=== PATIENT | male | born 1980 | race African-American/Black ===

== ENCOUNTER → 2016-11-28 | Outpatient (CLI) | payer OTHER ==
--- NOTE | 2016-11-28 10:21 | CT ---
EXAMINATION TYPE: CT abdomen pelvis w con DATE OF EXAM: 11/28/2016 COMPARISON: NONE HISTORY: 36-year-old male with abdominal and pelvic pain. TECHNIQUE: Contiguous axial scanning of the abdomen and pelvis following administration of 100 ml Omn ipaque 300 IV contrast. Delayed images through the kidneys and coronal/sagittal reconstructions perf ormed. CT DLP: 817 mGycm Automated exposure control for dose reduction was used. FINDINGS: Heart is normal size without pericardial effusion. Lung bases are clear without pleural effusion. Liver measures at the upper limits of normal at 17.5 cm craniocaudal. However, there is diffuse low a ttenuation with some fatty sparing along the gallbladder fossa and more pronounced focal fat along th e falciform ligament. Portal venous system is patent. No biliary ductal dilatation. The gallbladder, adrenal glands, left kidney, spleen, and pancreas show no gross abnormality. Couple tiny subcentimeter hypodensities lower pole right kidney too small fractured CT characterization, lik charleen tiny cysts. No dilated small bowel, free fluid, or free air. Oral contrast has progressed to the hepatic flexure. There is moderate stool burden without pericolonic inflammatory change. No mesenteric or retroperitoneal lymphadenopathy seen. There is a small fatty umbilical hernia. The left testicle appears high riding in the scrotal sac but remains outside of the inguinal canal. Bladder only partially urine distended. No abnormal fluid collection in the pelvis or pelvic lymphade nopathy seen. Bones: There are osseous excrescences at the femoral head neck junctions which can be seen in the set ting of femoral acetabular impingement syndrome. Additional anterior lumbar interbody fusion changes with satisfactory interbody ankylosis. L5 pars de fects are present with prominent grade 1 anterolisthesis. IMPRESSION: 1. NO ACUTE INFLAMMATORY PROCESS IDENTIFIED IN THE ABDOMEN OR PELVIS TO EXPLAIN THE PATIENT'S SYMPTOM S. 2. HEPATIC STEATOSIS. CORRELATE WITH LFT's, LIPID PROFILE, AND PATIENT RISK FACTORS. 3. THE LEFT TESTICLE APPEARS HIGH RIDING IN THE SCROTAL SAC BUT REMAINS OUTSIDE OF THE INGUINAL CANAL . 4. SMALL FATTY UMBILICAL HERNIA. 5. STATUS POST L5-S1 ALIF FOR L5 PARS DEFECTS. THERE IS SATISFACTORY INTERBODY BONY FUSION AND A FIX ED PROMINENT GRADE 1 ANTEROLISTHESIS. 6. SOME BONY CHANGES AT THE HIPS CAN BE SEEN IN THE SETTING OF FEMORAL ACETABULAR IMPINGEMENT SYNDROM E. IF ANY CHRONIC HIP PAIN, CONSIDER ORTHOPEDIC REFERRAL.
--- NOTE | 2016-11-28 13:23 | US ---
EXAMINATION TYPE: US scrotum with doppler. Grayscale and color Doppler Duplex imaging performed of t edna scrotum. DATE OF EXAM: 11/28/2016 COMPARISON: NONE CLINICAL HISTORY: n50.8 pain, discomfort right, plus intermittent testicular retraction since back pretty rgery several years back. EXAM MEASUREMENTS: TESTICLES: Right Testicle: 3.6 x 1.8 x 2.6 cm Left Testicle: 3.5 x 1.8 x 2.5 cm EPIDIDYMIS HEAD: Right Epididymis: 0.8 cm Left Epididymis: 0.8 cm Doppler performed to assess for testicular vascularity; good bilateral color flow and waveforms are s een. There is no evidence of testicular torsion. Presence of hydroceles: no Presence of varicoceles: no Small right epididymal cyst 0.2cm. Testicular echotexture is homogenous and symmetric. IMPRESSION: Small right epididymal cyst. Testicular torsion is not evident.
== END | disposition home or self-care (01) ==
LOC: RADUSMAIN 08:37
PROVIDERS: ATTEND Surgery
DX: K76.0 Fatty (change of) liver, not elsewhere classified (principal); K42.9 Umbilical hernia without obstruction or gangrene; M89.8X8 Other specified disorders of bone, other site; N50.3 Cyst of epididymis; Z98.1 Arthrodesis status
CPT/HCPCS: 93975; 76870; 74177; Q9967

== ENCOUNTER → 2017-07-28 | Outpatient (CLI) | payer OTHER ==
--- NOTE | 2017-07-28 09:38 | MR ---
MRI CERVICAL SPINE: CLINICAL HISTORY: Cervical disc degeneration per order. Occasional headaches with neck pain causing p ain or weakness into left arm since March 20, 2016 per patient. History of ankylosing spondylosis. TECHNIQUE: Multiplanar, multisequence imaging of the cervical spine is performed without IV contrast. COMPARISON: MRI cervical spine November 23, 2015. FINDINGS: Sagittal images of the cervical spine show the craniocervical junction to remain within nor mal limits. The cervical and upper thoracic spinal cord remains normal in course, caliber, and signa l. Vertebral alignment is stable and straightened. The vertebral body and intravertebral disk heigh ts are normal. There is persistent decreased T1 signal and increased T2 signal involving the C4-C7 ve rtebra, diminished T1 signal is now more prominent and greater than adjacent skeletal muscle. Some di ffuse heterogeneous enhancement was seen on prior study at these levels. There is moderate to severe multilevel anterior spurring redemonstrated at these levels. Axial images redemonstrates focal left paracentral disc protrusion mildly effacing anterolateral thec al sac C5-C6 level on axial image 22, bilateral neural foramina are patent. Remainder axial level willis w no significant spinal canal stenosis or neural foraminal narrowing at any cervical level. IMPRESSION: Straightening of spine with prominent spurring and abnormal diffuse bone marrow signal mi d to lower cervical levels redemonstrated. Consider persistent active inflammation given history of a nkylosing spondylitis. No significant change from prior MRI.
== END | disposition home or self-care (01) ==
LOC: RADMRIMAIN 07:48
PROVIDERS: ATTEND Nurse Practitioner Family
DX: M46.02 Spinal enthesopathy, cervical region (principal)
CPT/HCPCS: 72141

== ENCOUNTER 2017-10-10 17:52 | Emergency (ER) | payer OTHER ==
[2017-10-10 18:18] VITALS: BP 133/89; PULSE 114; RESP 18; TEMP 99.4
--- NOTE | 2017-10-10 18:34 | ED ---
Upper Extremity HPI - General Chief Complaint: Extremity Injury, Upper Stated Complaint: Shoulder Dislocation Time Seen by Provider: 10/10/17 18:18 Source: patient, RN notes reviewed Mode of arrival: ambulatory Limitations: no limitations - History of Present Illness Initial Comments: This is a 37-year-old male presents emergency from chief complaint of left shoulder pain. Patient states that he was doing yard work all day states he went to relax states he had his arm above his head states he went to move down he states had severe pain ever since. He states he feels they cannot really move his left arm secondary to pain. Denies any paresthesias. Denies chest pain, shortness breath, headache or dizziness. Denies any neck pain at this time. - Related Data Previous Rx's Medication Instructions Recorded Ibuprofen [Motrin] 600 mg PO Q8HR PRN #30 tab 10/10/17 Allergies Allergy/AdvReac Type Severity Reaction Status Date / Time Penicillins Allergy Unknown Verified 10/10/17 18:18 Review of Systems ROS Statement: Those systems with pertinent positive or pertinent negative responses have been documented in the HPI. ROS Other: All systems not noted in ROS Statement are negative. Past Medical History Past Medical History: No Reported History History of Any Multi-Drug Resistant Organisms: None Reported Additional Past Surgical History / Comment(s): back Past Psychological History: No Psychological Hx Reported Smoking Status: Current every day smoker Past Alcohol Use History: Daily Past Drug Use History: Marijuana General Exam Limitations: no limitations General appearance: alert, in no apparent distress Head exam: Present: atraumatic, normocephalic, normal inspection Neck exam: Present: normal inspection, full ROM. Absent: tenderness, meningismus, lymphadenopathy Respiratory exam: Present: normal lung sounds bilaterally. Absent: respiratory distress, wheezes, rales, rhonchi, stridor Cardiovascular Exam: Present: regular rate, normal rhythm, normal heart sounds. Absent: systolic murmur, diastolic murmur, rubs, gallop, clicks Extremities exam: Present: other (Left shoulder limited range of motion secondary pain there is mild tenderness over the posterior aspect, there is no obvious deformity patient is neurovascularly intact.) Course Vital Signs 10/10/17 18:16 Temperature 99.4 F Pulse Rate 114 H Respiratory 18 Rate Blood Pressure 133/89 O2 Sat by Pulse 97 Oximetry Medical Decision Making - Medical Decision Making 37-year-old male presents for left shoulder pain. There is no evidence of dislocation on x-ray. Patient most likely has a left shoulder strain. Patient is a shot of Toradol emergency department. Patient discharged on anti- inflammatories advised to rest, ice and follow-up with orthopedics. Return parameters were discussed. Disposition Clinical Impression: Strain of shoulder Disposition: HOME SELF-CARE Condition: Stable Instructions: Shoulder Sprain (ED) Additional Instructions: Please return to the Emergency Department if symptoms worsen or any other concerns. Prescriptions: Ibuprofen [Motrin] 600 mg PO Q8HR PRN #30 tab PRN Reason: Pain Is patient prescribed a controlled substance at d/c from ED?: No Referrals: John Puente MD [Primary Care Provider] - 1-2 days Antoni Vargas DO [Doctor of Osteopathic Medicine] - 1-2 days Time of Disposition: 18:37
[2017-10-10] MEDS ORDERED: KETOROLAC 60 MG/2 ML VIAL IM STA (18:35)
[2017-10-10] MEDS ORDERED: ORPHENADRINE 30 MG/ML 2 ML VIAL IM STA (18:35)
--- NOTE | 2017-10-10 18:37 | XR ---
EXAMINATION TYPE: XR shoulder complete LT DATE OF EXAM: 10/10/2017 COMPARISON: NONE HISTORY: Shoulder pain TECHNIQUE: 3 views FINDINGS: I see no fracture nor dislocation. Joint spaces are normal. Soft tissues appear normal. IMPRESSION: Negative left shoulder exam.
== END 2017-10-10 18:56 | disposition home or self-care (01) ==
LOC: EC 17:52
DX: S46.912A Strain of unspecified muscle, fascia and tendon at shoulder and upper arm level, left arm, initial encounter (principal); F17.200 Nicotine dependence, unspecified, uncomplicated; Z88.0 Allergy status to penicillin
CPT/HCPCS: 73030; 99283; 96372 ×2; J2360; J1885

== ENCOUNTER → 2018-10-19 | Outpatient (CLI) | payer OTHER ==
--- NOTE | 2018-10-19 12:53 | CT ---
EXAMINATION TYPE: CT lumbar spine wo con DATE OF EXAM: 10/19/2018 12:17 PM COMPARISON: HISTORY: Low back pain. CT DLP: 407.8 mGycm Automated exposure control for dose reduction was used. TECHNIQUE: Unenhanced CT of the lumbar spine was performed. Bone and soft tissue window settings are submitted as well as coronal and sagittal reconstructions. FINDINGS: There is osseous bridging and fusion status post insertion of intervertebral disc age of th e L5-S1 vertebral levels. Anterior osteophyte at L4-L5 nearly bridges the vertebral bodies as do lowe r thoracic spine osteophytes. Sclerosis originating from the endplates is seen of the lower thoracic spine and at L1, likely discogenic endplate change. No evidence of vertebral body height loss or markus lignment. L1-L2: Very mild broad-based disc bulge is seen without neural foraminal narrowing or spinal canal st enosis. L2-L3: There is a very mild broad-based disc bulge creating very minimal bilateral neural foraminal n arrowing without spinal canal stenosis. L3-L4: There is a broad-based disc bulge creating mild bilateral neural foraminal narrowing without s remington canal stenosis. L4-L5: There is a broad-based disc bulge creating mild to moderate bilateral neural foraminal narrowi ng without spinal canal stenosis. L5-S1: Osseous fusion at this level is seen. Posterior projecting bony productive change creates mild spinal canal stenosis at this level. Neural foramen are also mildly narrowed. IMPRESSION: 1. No vertebral body height loss or malalignment of the lumbar spine. 2. Surgical fusion of the L5-S1 levels are seen with bony productive change at the posterior margin c reating mild spinal canal stenosis and mild bilateral neural foraminal narrowing. 3. Degenerative disc disease of the remaining visualized lumbar spine wo high-grade spinal canal sten osis. Degree of spinal canal stenosis or neural foraminal narrowing would be more accurately assessed with MRI however multilevel mild and mild to moderate neural foraminal narrowing are seen as describ ed above.
== END | disposition home or self-care (01) ==
LOC: RADCTMAIN 11:57
PROVIDERS: ATTEND Neurological Surgery
DX: M48.061 Spinal stenosis, lumbar region without neurogenic claudication (principal); M48.07 Spinal stenosis, lumbosacral region; M51.36 Other intervertebral disc degeneration, lumbar region; Z98.1 Arthrodesis status
CPT/HCPCS: 72131

== ENCOUNTER 2020-11-23 20:38 | Inpatient (IN) | payer OTHER ==
[2020-11-23 21:28] LABS: Basophils # (A) 0.1 k/uL (0-0.2); Basophils % (A) 1 %; Eosinophils # (A) 0.2 k/uL (0-0.7); Eosinophils % (A) 2 %; HCT 40.9 % (39.0-53.0); HGB 13.8 gm/dL (13.0-17.5); Lymphocytes # (A) 3.3 k/uL (1.0-4.8); Lymphocytes % (A) 34 %; MCH 31.2 pg (25.0-35.0); MCHC 33.8 g/dL (31.0-37.0); MCV 92.2 fL (80.0-100.0); Mean Platelet Volume 6.8; Monocytes # (A) 0.6 k/uL (0-1.0); Monocytes % (A) 6 %; Neutrophils # (A) 5.5 k/uL (1.3-7.7); Neutrophils % (A) 56 %; Platelet Count 370 k/uL (150-450); RBC 4.44 m/uL (4.30-5.90); RDW 12.9 % (11.5-15.5); WBC 9.8 k/uL (3.8-10.6)
[2020-11-23] MEDS ORDERED: LORazepam 2 MG/ML INJ IV PRN (21:32)
[2020-11-23] MEDS ORDERED: THIAMINE 100 MG/ML 2 ML VIAL IM STA (21:32)
--- NOTE | 2020-11-23 21:32 | ED ---
Alcohol HPI - General Chief Complaint: Alcohol Stated Complaint: Alcohol Withdraw Time Seen by Provider: 11/23/20 21:14 Source: patient Mode of arrival: ambulatory Limitations: no limitations - History of Present Illness Initial Comments: 40-year-old male presents emergency Department with chief complaint of alcohol withdrawal. Patient has history of alcohol abuse and states that he typically drinks 1/5 of liquor daily. States she is attempting to quit but is unable due to withdrawal symptoms. States he has not drank anything since yesterday and he developed chills and bilateral tremors. States she also developed palpitations with increased anxiety some nausea or vomiting. Therefore, he decided to drink today again. States he is looking for some help. He is denying any homicidal, suicidal thoughts or ideations at this time. - Related Data Home Medications Medication Instructions Recorded Confirmed Cyclobenzaprine [Flexeril] 10 mg PO TID PRN 10/10/17 10/10/17 HYDROcodone/APAP 7.5-325MG [[place] 1 tab PO Q6HR PRN 10/10/17 10/10/17 7.5-325] Ibuprofen [Motrin] 800 mg PO TID PRN 10/10/17 10/10/17 predniSONE 10 mg PO DAILY 10/10/17 10/10/17 Previous Rx's Medication Instructions Recorded Ibuprofen [Motrin] 600 mg PO Q8HR PRN #30 tab 10/10/17 Allergies Allergy/AdvReac Type Severity Reaction Status Date / Time Penicillins Allergy Unknown Verified 10/10/17 18:42 Review of Systems ROS Statement: Those systems with pertinent positive or pertinent negative responses have been documented in the HPI. ROS Other: All systems not noted in ROS Statement are negative. Past Medical History Past Medical History: No Reported History History of Any Multi-Drug Resistant Organisms: None Reported Additional Past Surgical History / Comment(s): back Past Psychological History: No Psychological Hx Reported Smoking Status: Current every day smoker Past Alcohol Use History: Abuse, Daily Past Drug Use History: Marijuana General Exam Limitations: no limitations General appearance: alert, in no apparent distress, anxious Head exam: Present: atraumatic, normocephalic, normal inspection Eye exam: Present: normal appearance, PERRL, EOMI Pupils: Present: normal accommodation ENT exam: Present: normal exam, normal oropharynx, mucous membranes moist Neck exam: Present: normal inspection, full ROM. Absent: tenderness, lymphadenopathy Respiratory exam: Present: normal lung sounds bilaterally. Absent: respiratory distress, wheezes, rales, rhonchi, stridor Cardiovascular Exam: Present: regular rate, normal rhythm, normal heart sounds GI/Abdominal exam: Absent: soft, distended, tenderness, guarding, rebound Extremities exam: Present: normal inspection, full ROM, normal capillary refill. Absent: tenderness Back exam: Present: normal inspection, full ROM. Absent: tenderness Neurological exam: Present: alert, oriented X3 Psychiatric exam: Present: normal affect, normal mood Skin exam: Present: warm, dry, intact, normal color Course Vital Signs 11/23/20 20:45 Temperature 98.2 F Pulse Rate 105 H Respiratory 20 Rate Blood Pressure 143/101 O2 Sat by Pulse 100 Oximetry Medical Decision Making - Medical Decision Making 40-year-old male presents emergency Department with chief complaint of alcohol withdrawal. On physical examination, patient is tremulous in bilateral upper extremities. He is also very anxious when speaking. Patient was started on the Ativan protocol. CIWA assessed. Laboratory work is unremarkable. Blood alcohol 0.071. Patient will be admitted for further psychiatric management. Case discussed with ADmitting DR Connors Psych consult - Lab Data Result diagrams: 11/23/20 21:17 11/23/20 21:17 Lab Results 11/23/20 11/23/20 11/23/20 Range/Units 21:17 21:17 21:17 WBC 9.8 (3.8-10.6) k/uL RBC 4.44 (4.30-5.90) m/uL Hgb 13.8 (13.0-17.5) gm/dL Hct 40.9 (39.0-53.0) % MCV 92.2 (80.0-100.0) fL MCH 31.2 (25.0-35.0) pg MCHC 33.8 (31.0-37.0) g/dL RDW 12.9 (11.5-15.5) % Plt Count 370 (150-450) k/uL MPV 6.8 Neutrophils % 56 % Lymphocytes % 34 % Monocytes % 6 % Eosinophils % 2 % Basophils % 1 % Neutrophils # 5.5 (1.3-7.7) k/uL Lymphocytes # 3.3 (1.0-4.8) k/uL Monocytes # 0.6 (0-1.0) k/uL Eosinophils # 0.2 (0-0.7) k/uL Basophils # 0.1 (0-0.2) k/uL Sodium 139 (137-145) mmol/L Potassium 3.6 (3.5-5.1) mmol/L Chloride 102 (98-107) mmol/L Carbon Dioxide 30 (22-30) mmol/L Anion Gap 7 mmol/L BUN 16 (9-20) mg/dL Creatinine 0.82 (0.66-1.25) mg/dL Est GFR (CKD-EPI)AfAm >90 (>60 ml/min/1.73 sqM) Est GFR (CKD-EPI)NonAf >90 (>60 ml/min/1.73 sqM) Glucose 99 (74-99) mg/dL Calcium 9.4 (8.4-10.2) mg/dL Magnesium 2.0 (1.6-2.3) mg/dL Total Bilirubin 0.5 (0.2-1.3) mg/dL AST 38 (17-59) U/L ALT 19 (4-49) U/L Alkaline Phosphatase 115 (38-126) U/L Total Protein 7.8 (6.3-8.2) g/dL Albumin 4.7 (3.5-5.0) g/dL Lipase 74 (23-300) U/L Urine Color Light Yellow Urine Appearance Clear (Clear) Urine pH 6.0 (5.0-8.0) Ur Specific [place] 1.010 (1.001-1.035) Urine Protein Negative (Negative) Urine Glucose (UA) Negative (Negative) Urine Ketones Negative (Negative) Urine Blood Small H (Negative) Urine Nitrite Negative (Negative) Urine Bilirubin Negative (Negative) Urine Urobilinogen <2.0 (<2.0) mg/dL Ur Leukocyte Esterase Negative (Negative) Urine RBC 2 (0-5) /hpf Ur Squamous Epith Cells <1 (0-4) /hpf Urine Mucus Rare H (None) /hpf Serum Alcohol 71 mg/dL Disposition Clinical Impression: Alcoholic intoxication, Alcohol withdrawal Disposition: ADMITTED IP TO THIS [facility] Condition: Fair Instructions (If sedation given, give patient instructions): Alcohol Withdrawal (ED) Is patient prescribed a controlled substance at d/c from ED?: No Referrals: John Puente MD [Primary Care Provider] - 1-2 days Time of Disposition: 23:27
[2020-11-23] MEDS: LORazepam 2 MG/ML INJ IV PRN (21:36)
[2020-11-23 21:39] LABS: Appearance,Urine Clear (Clear); Bilirubin,Urine Negative (Negative); Blood,Urine Small (Negative); Color,Urine Light Yellow; Glucose,Urine (UA) Negative (Negative); Ketones,Urine Negative (Negative); Leukocyte Esterase,Urine Negative (Negative); Mucus,Urine Rare /hpf; Nitrite,Urine Negative (Negative); Protein,Urine Negative (Negative); RBC,Urine 2 /hpf (0-5); Squamous Epithelial Cell,Urine <1 /hpf (0-4); Urobilinogen,Urine <2.0 mg/dL (<2.0)
[2020-11-23 21:45] LABS: ALT 19 U/L (4-49); AST 38 U/L (17-59); African American GFR (CKD) >90 (>60 ml/min/1.73 sqM); Albumin 4.7 g/dL (3.5-5.0); Alcohol 71 mg/dL; Alkaline Phosphatase 115 U/L (38-126); Anion Gap 7 mmol/L; Blood Urea Nitrogen 16 mg/dL (9-20); Calcium 9.4 mg/dL (8.4-10.2); Carbon Dioxide 30 mmol/L (22-30); Chloride 102 mmol/L (98-107); Glucose 99 mg/dL (74-99); Lipase 74 U/L (23-300); Non-African American GFR(CKD) >90 (>60 ml/min/1.73 sqM); Potassium 3.6 mmol/L (3.5-5.1); Sodium 139 mmol/L (137-145); Total Bilirubin 0.5 mg/dL (0.2-1.3); Total Protein 7.8 g/dL (6.3-8.2)
[2020-11-23] MEDS ORDERED: NALOXONE 0.4 MG/ML 1 ML VIAL IV PRN (23:27)
[2020-11-24] MEDS: LORazepam 2 MG/ML INJ IV PRN ×4 (01:08→22:20)
[2020-11-24] MEDS: CLINDAMYCIN TOPICAL SCH (10:13)
[2020-11-24] MEDS: BENZOYL PEROXIDE TOPICAL SCH (10:13)
[2020-11-24] MEDS: PATIENT'S OWN (Dextroamphetamine/Amphetamine [Adderall] 10 MG Tablet) PO SCH ×2 (10:13→13:43)
[2020-11-24] MEDS: predniSONE 10 MG TAB PO SCH (10:18)
[2020-11-24] MEDS: THIAMINE 100 MG TAB PO SCH ×2 (10:18→18:57)
[2020-11-24] MEDS: METOPROLOL TARTRATE 12.5 MG TAB PO SCH ×3 (12:38→20:07)
[2020-11-24] MEDS: FAMOTIDINE 20 MG TAB PO SCH ×2 (12:38→20:07)
--- NOTE | 2020-11-24 13:51 | P.CN ---
Psychiatric Consult - . Consult date: 11/24/20 Consult:: IDENTIFYING DATA: This patient is a 40-year-old -[place] male who currently lives with his in a house has 4 girls and 8 grand kids REASON FOR REFERRAL: Psychiatry was consulted for alcohol withdrawal HISTORY OF PRESENT ILLNESS: The patient presented to the hospital with complaints of alcohol abuse and alcohol withdrawal. The patient had been drinking a fifth of liquor a day and attempting to quit on his own however began developing early signs of withdrawal including palpitations and anxiety nausea and vomiting and then started drinking again. His blood alcohol level was 71 on admission. Patient was seen by psychiatry today and claims that he is wanting to stop alcohol however claims "it's not working out". He states that is his first time trying to quit on his own and claims that he has not done any other treatment. He denies ever going to rehab in the past or being on medications. He states he has been drinking alcohol since the age of 23. He claims that he drinks approximately a fifth of liquor a day. He claims that he has never had a DUI in the past. He denies a history of DTs. He currently claims that he does not have any active alcohol withdrawal symptoms at this time and denies any tremors. He is denying any depression or anxiety at this time. He claims his sleep has been fair. At this time patient denies any suicidal or homical ideations, intent or plan. Patient denies any auditory, visual hallucinations and denies any paranoia or delusions. Patients admits to using alcohol as described above. He also claims that he smokes marijuana daily. He claims that he PAST PSYCHIATRIC HISTORY: Patient has a a history of alcohol abuse. Patient denies being on any psychiatric medications. He claims that he was previously admitted psychiatrically to [facility] approximately 15 years ago. Patient denies any psychiatric outpatient follow-up. Patient denies any history of suicide attempts in the past. PAST MEDICAL HISTORY: He states that he is has had back surgeries in the past and rheumatoid arthritis. ALLERGIES: as per EMR. CHEMICAL DEPENDENCY HISTORY: as per HPI. FAMILY PSYCHIATRIC/SUBSTANCE USE HISTORY: He states that his brother has some form of mental illness. SOCIAL HISTORY: Patient was born and raised in [place]. 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 He states that he has been to nursing home in the past and he was charged with domestic violence. MENTAL STATUS EXAM: General Appearance: Patient appears to be thin, has dreadlocks, stated age is alert, pleasant, and cooperative. Patient appears to have fair hygiene and grooming wearing hospital gown with fair eye contact. Behavior: Patient is calmly lying in bed without any agitated behavior. Speech: Patient's speech is fluent and nonpressured. Mood/Affect: Patient reports their mood is "ok", affect is congruent Suicidality/Homicidality: Patient denies having any suicidal or homicidal ideation intent or plan. Perceptions: Patient denies any visual hallucinations and denies any auditory hallucinations Though content/process: There is no evidence of any delusional thought content and thought process is linear and goal-directed. Future oriented. Memory and concentration: AOX3, grossly intact for the purposes of this session. Can spell "WORLD" backwards Judgment and insight: fair IMPRESSIONS: Alcohol use disorder, severe, currently in withdrawal Cannabis use disorder Nicotine dependence PLAN: -At this time patient DOES NOT meet criteria for inpatient psychiatric admission. -Would recommend the following medication changes/additions: Patient is agreeable to start naltrexone by mouth 50 mg daily for alcohol cravings. Senior Clinical Research Associate discussed the side effects, benefits and risks associated with this medication with both patient and his over video call. -CIWA protocol with PRN Ativan for alcohol withdrawal. Continue to monitor vital signs. -he is already on standing dose of Valium q8hr for etoh w/d -survey worker to provide patient with outpatient mental health/psychiatry resources for appropriate follow up upon discharge -Senior Clinical Research Associate spoke with patient about substance abuse and the harmful effects on medical and mental health, patient verbally understood and agreed. -survey worker to provide patient substance use treatment resources including AA/NA meetings in the community. -Communicated plan to patient's nurse -Psychiatry will sign off at this time -Please contact with any questions.
--- NOTE | 2020-11-24 14:12 | P.HPIM ---
History of Present Illness H&P Date: 11/24/20 Chief Complaint: Increased alcohol intake History of presenting complaint: This is a 40-year-old patient who follows with Dr. John Puente. Patient's been drinking excessive alcohol for quite some time. Patient presented to the ER yesterday evening with alcohol withdrawal symptoms including tremors and anxious. Patient has been trying to quit unable to do the same. He drinks about a fifth a day. After EMG. For good 18 years. Also smokes cigarettes. Patient's appetite has not been good for last 10 days. Eating up on a sandwich she had a day. Anxious. He started on Levaquin alcohol. No abdominal pain. Review of systems: GEN.: Tired EYES: None HEENT: None NECK: None RESPIRATORY: None CARDIOVASCULAR: None GASTROINTESTINAL: Heartburn GENITOURINARY: None MUSCULOSKELETAL: None LYMPHATICS: None HEMATOLOGICAL: None PSYCHIATRY: Anxious NEUROLOGICAL: None Past medical history to include: Alcoholism. Smokes cigarettes. Rheumatoid arthritis Social history: , lives with his . 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 Has been drinking significantly for close to 18 years. Also does marijuana. Family history: Reviewed, noncontributory to presentation Physical examination: VITAL SIGNS: 98.2, 105, 20, 1 43 x 1 01, 100% room air/over presentation GENERAL: BMI 20.8, sitting up in bed, anxious. EYES: Pupils equal. Conjunctiva alexx, strabismusl. HEENT: External appearance of nose and ears normal, oral cavity grossly normal. NECK: JVD not raised; masses not palpable. HEART: First and second heart sounds are normal; no edema. LUNGS: Respiratory rate normal; slightly decreased breath sound. ABDOMEN: Soft, nontender, liver spleen not palpable, no masses palpable. PSYCH: Alert and oriented x3; mood and affect anxiousl. NEUROLOGICAL: Cranial nerves grossly intact; no facial asymmetry, power and sensation grossly intact. Mild tremors LYMPHATICS: No lymph nodes palpable in the axilla and neck INVESTIGATIONS, reviewed in the clinical context: WBC 9.8 hemoglobin 13.8 platelets 370 potassium 3.6 creatinine 0.82 Serum alcohol 71 Coronavirus [PCR] not detected Assessment and plan: -Acute early alcohol withdrawal syndrome We'll start the patient on Valium 5 mg every 8, and Lopressor 12.5 mg by mouth 3 times a day to curtail sympathetic drive. 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 We will prescribe disulfiram at discharge. Alcohol anonymous. -Chronic nicotine dependence, cigarette use. Nicotine patch -Recreational marijuana use Advised against the use of same -Anorexia from alcoholism Expect appetite to pickler helper -GERD, chronic gastritis likely from alcoholism Add Pepcid -Chronic rheumatoid arthritis Patient is on a maintenance dose of prednisone. Continue. Patient to follow-up with the utilization review rn upon discharge. Care was discussed with the patient. Questions answered. Valium beta nevin. Thiamine. Pepcid. CIWA scale Smoke cessation counseling: This was done with the patient. Nicotine patch is being given. More than 3 minutes was spent for this Past Medical History Past Medical History: No Reported History History of Any Multi-Drug Resistant Organisms: None Reported Additional Past Surgical History / Comment(s): back Past Psychological History: No Psychological Hx Reported Smoking Status: Current every day smoker Past Alcohol Use History: Abuse, Daily Past Drug Use History: Marijuana Medications and Allergies Home Medications Medication Instructions Recorded Confirmed Type HYDROcodone/APAP 7.5-325MG [[place] 1 tab PO Q6HR PRN 10/10/17 11/23/20 History 7.5-325] predniSONE 10 mg PO DAILY 10/10/17 11/23/20 History Benzoyl Peroxide [Benzac AC Wash] 1 applic TOPICAL DAILY 11/23/20 11/23/20 History Clindamycin Topical Soln 1 applic TOPICAL DAILY 11/23/20 11/23/20 History [Cleocin-T Topical Soln] Dextroamphetamine/Amphetamine 10 mg PO BID 11/23/20 11/23/20 History [Adderall] LORazepam [Ativan] 1 mg PO Q6H PRN 11/23/20 11/23/20 History Allergies Allergy/AdvReac Type Severity Reaction Status Date / Time Penicillins Allergy Unknown Verified 11/23/20 23:39 Physical Exam Vitals: Vital Signs Temp Pulse Resp BP Pulse Ox 11/24/20 08:59 98.9 F 76 16 124/84 98 11/24/20 04:51 98.2 F 97 18 130/97 100 11/24/20 00:00 101 H 18 113/67 97 11/23/20 20:45 98.2 F 105 H 20 143/101 100 Intake and Output 11/23/20 11/24/20 11/24/20 22:59 06:59 14:59 Other: Weight 65.771 kg Results CBC & Chem 7: 11/23/20 21:17 11/23/20 21:17 Labs: Abnormal Lab Results - Last 24 Hours (Table) 11/23/20 Range/Units 21:17 Urine Blood Small H (Negative) Urine Mucus Rare H (None) /hpf
[2020-11-24] MEDS: NICOTINE 21MG/24HR PATCH TRANSDERM SCH (15:50)
[2020-11-24] MEDS: diazePAM 5 MG TAB PO SCH ×2 (15:50→23:14)
[2020-11-24] MEDS: HYDROcodone/APAP 7.5-325MG 1 EACH TAB PO PRN (17:31)
[2020-11-24] MEDS ORDERED: IBUPROFEN 800 MG TAB PO PRN (19:29)
[2020-11-24] MEDS ORDERED: CYCLOBENZAPRINE 10 MG TAB PO PRN (19:29)
[2020-11-25] MEDS: LORazepam 2 MG/ML INJ IV PRN ×5 (02:36→21:00)
[2020-11-25] MEDS: THIAMINE 100 MG TAB PO SCH ×2 (06:31→16:32)
[2020-11-25] MEDS: PATIENT'S OWN (Dextroamphetamine/Amphetamine [Adderall] 10 MG Tablet) PO SCH ×2 (08:34→12:10)
[2020-11-25] MEDS: CLINDAMYCIN TOPICAL SCH (08:35)
[2020-11-25] MEDS: BENZOYL PEROXIDE TOPICAL SCH (08:35)
[2020-11-25] MEDS: METOPROLOL TARTRATE 12.5 MG TAB PO SCH ×2 (08:51→20:00)
[2020-11-25] MEDS: diazePAM 5 MG TAB PO SCH (08:51)
[2020-11-25] MEDS: predniSONE 10 MG TAB PO SCH (08:55)
[2020-11-25] MEDS: NICOTINE 21MG/24HR PATCH TRANSDERM SCH (08:56)
[2020-11-25] MEDS: FAMOTIDINE 20 MG TAB PO SCH ×2 (08:56→20:01)
--- NOTE | 2020-11-25 14:31 | P.PN ---
Progress Note - Text Progress Note Date: 11/25/20 Chief Complaint: Increased alcohol intake History of presenting complaint: This is a 40-year-old patient who follows with Dr. John Puente. Patient's been drinking excessive alcohol for quite some time. Patient presented to the ER yesterday evening with alcohol withdrawal symptoms including tremors and anxious. Patient has been trying to quit unable to do the same. He drinks about a fifth a day. Has been drinking for For good 18 years. Also smokes cigarettes. Patient's appetite has not been good for last 10 days. Anxious. He started on CIWA scale. No abdominal pain. Patient is put on Valium and beta nevin for control in the sympathetic drive. Pepcid for gastritis. Today: Patient anxiety is better. Withdrawal symptoms are improving. On Valium and Lopressor. Patient is feeling guilty about his alcohol intake and wants to stop. Oral intake improving Review of systems: Was done for constitutional, cardiovascular, GI, pulmonary. relevant finding as above Active Medications Hydrocodone Bitart/Acetaminophen (Hydrocodone/Apap 7.5-325mg 1 Each Tab) 1 each PO Q6HR PRN PRN Reason: Pain Last Admin: 11/24/20 17:31 Dose: 1 each Documented by: Cyclobenzaprine HCl (Cyclobenzaprine 10 Mg Tab) 10 mg PO DAILY PRN PRN Reason: Muscle Spasm Diazepam (Diazepam 2 Mg Tab) 2 mg PO Q8H [place] Famotidine (Famotidine 20 Mg Tab) 20 mg PO BID [place] Last Admin: 11/25/20 08:56 Dose: 20 mg Documented by: Ibuprofen (Ibuprofen 800 Mg Tab) 800 mg PO BID PRN PRN Reason: Moderate to Severe Pain Lorazepam (Lorazepam 2 Mg/Ml Inj) 1 mg IV Q2HR PRN PRN Reason: CIWA 8 or 9 Last Admin: 11/25/20 13:20 Dose: 1 mg Documented by: Lorazepam (Lorazepam 2 Mg/Ml Inj) 1 mg IV Q1HR PRN PRN Reason: CIWA 10 to 15 Last Admin: 11/25/20 02:36 Dose: 1 mg Documented by: Lorazepam (Lorazepam 2 Mg/Ml Inj) 2 mg IV Q10M PRN PRN Reason: CIWA 16 or higher Stop: 11/25/20 21:32 Metoprolol Tartrate (Metoprolol Tartrate 12.5 Mg Tab) 12.5 mg PO BID [facility] Naloxone HCl (Naloxone 0.4 Mg/Ml 1 Ml Vial) 0.2 mg IV Q2M PRN PRN Reason: Opioid Reversal Nicotine (Nicotine 21mg/24hr Patch) 1 patch TRANSDERM DAILY [facility] Last Admin: 11/25/20 08:56 Dose: Not Given Documented by: Patient's Own ( Benzoyl Peroxide 1 Applic Applic) 1 applic TOPICAL DAILY [facility] Last Admin: 11/25/20 08:35 Dose: Not Given Documented by: Patient's Own ( Clindamycin Topical Soln 1 Applic Applic ) 1 applic TOPICAL DAILY [facility] Last Admin: 11/25/20 08:35 Dose: Not Given Documented by: Patient's Own ( Dextroamphetamine/Amphetamine [ Adderall] 10 Mg Tablet) 10 mg PO BID@0800,1400 [facility] Last Admin: 11/25/20 12:10 Dose: Not Given Documented by: Prednisone (Prednisone 10 Mg Tab) 10 mg PO DAILY [facility] Last Admin: 11/25/20 08:55 Dose: 10 mg Documented by: Thiamine HCl (Thiamine 100 Mg Tab) 100 mg PO BID-W/MEALS [facility] Last Admin: 11/25/20 06:31 Dose: 100 mg Documented by: Past medical history to include: Alcoholism. Smokes cigarettes. Rheumatoid arthritis Social history: , lives with his . 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 Has been drinking significantly for close to 18 years. Also does marijuana. Family history: Reviewed, noncontributory to presentation Physical examination: VITAL SIGNS: Afebrile, 74, 16, 114/74, 98% room air GENERAL: Sitting up in bed, less anxious EYES: Pupils equal. Conjunctiva alexx, strabismus. NECK: JVD not raised; masses not palpable. HEART: First and second heart sounds are normal; no edema. LUNGS: Respiratory rate normal; slightly decreased breath sound. ABDOMEN: Soft, nontender, liver spleen not palpable, no masses palpable. PSYCH: Alert and oriented x3; mood and affect less anxious NEUROLOGICAL: Cranial nerves grossly intact; no facial asymmetry, power and sensation grossly intact. Tremors improved INVESTIGATIONS, reviewed in the clinical context: WBC 9.8 hemoglobin 13.8 platelets 370 potassium 3.6 creatinine 0.82 Serum alcohol 71 Coronavirus [PCR] not detected Assessment and plan: -Acute early alcohol withdrawal syndrome-improving Decreased Valium 2 mg every 8, and Lopressor 12.5 mg twice daily. CIWA scale -Chronic alcohol use disorder application development project manager to give options to the patient regarding counseling. Patient would prefer naltrexone and discharge. Not keen for disulfiram -Chronic nicotine dependence, cigarette use. 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 Continue. Patient to follow-up with the credit representative upon discharge. Patient put his on face time and the 3 of us and a discussion about patient's problem. It was decided that the patient smoked for counseling through the shelter case manager. He will also try naltrexone. Did not want disulfiram. Dose of Valium and Lopressor was cut back today. Plan for patient to be discharged tomorrow. Several questions were answered. Alcohol counseling: This was done at length with the patient. Including medications. Currently on CIWA scale. Dose of Valium and Lopressor is being cut back. Patient be given a prescription for naltrexone. Social aspects were discussed. Total time spent was 20 minutes
[2020-11-25] MEDS: diazePAM 2 MG TAB PO SCH ×2 (16:32→22:54)
[2020-11-26] MEDS: LORazepam 2 MG/ML INJ IV PRN ×6 (02:42→22:28)
[2020-11-26] MEDS: THIAMINE 100 MG TAB PO SCH ×2 (06:30→17:26)
[2020-11-26] MEDS: BENZOYL PEROXIDE TOPICAL SCH (07:48)
[2020-11-26] MEDS: PATIENT'S OWN (Dextroamphetamine/Amphetamine [Adderall] 10 MG Tablet) PO SCH ×2 (07:48→14:36)
[2020-11-26] MEDS: CLINDAMYCIN TOPICAL SCH (07:48)
[2020-11-26] MEDS: diazePAM 2 MG TAB PO SCH ×3 (09:35→23:57)
[2020-11-26] MEDS: FAMOTIDINE 20 MG TAB PO SCH ×2 (09:35→20:02)
[2020-11-26] MEDS: METOPROLOL TARTRATE 12.5 MG TAB PO SCH ×2 (09:35→20:02)
[2020-11-26] MEDS: predniSONE 10 MG TAB PO SCH (09:36)
[2020-11-26] MEDS: NICOTINE 21MG/24HR PATCH TRANSDERM SCH (09:41)
--- NOTE | 2020-11-26 13:45 | P.PN ---
Progress Note - Text Progress Note Date: 11/26/20 Chief Complaint: Increased alcohol intake History of presenting complaint: This is a 40-year-old patient who follows with Dr. John Puente. Patient's been drinking excessive alcohol for quite some time. Patient presented to the ER yesterday evening with alcohol withdrawal symptoms including tremors and anxious. Patient has been trying to quit unable to do the same. He drinks about a fifth a day. Has been drinking for For good 18 years. Also smokes cigarettes. Patient's appetite has not been good for last 10 days. Anxious. He started on CIWA scale. No abdominal pain. Patient is put on Valium and beta nevin for control in the sympathetic drive. Pepcid for gastritis. Today: This morning patient had an episode of shaking. Possibly withdrawal. He was awake and alert. No tongue biting or incontinence. Settled with Ativan. Getting better later this morning. Yesterday had been out of the hallway. Oral intake could better Review of systems: Was done for constitutional, cardiovascular, GI, pulmonary. relevant finding as above Active Medications Hydrocodone Bitart/Acetaminophen (Hydrocodone/Apap 7.5-325mg 1 Each Tab) 1 each PO Q6HR PRN PRN Reason: Pain Last Admin: 11/24/20 17:31 Dose: 1 each Documented by: Cyclobenzaprine HCl (Cyclobenzaprine 10 Mg Tab) 10 mg PO DAILY PRN PRN Reason: Muscle Spasm Diazepam (Diazepam 2 Mg Tab) 2 mg PO Q8H [facility] Last Admin: 11/26/20 09:35 Dose: 2 mg Documented by: Famotidine (Famotidine 20 Mg Tab) 20 mg PO BID [facility] Last Admin: 11/26/20 09:35 Dose: 20 mg Documented by: Ibuprofen (Ibuprofen 800 Mg Tab) 800 mg PO BID PRN PRN Reason: Moderate to Severe Pain Lorazepam (Lorazepam 2 Mg/Ml Inj) 1 mg IV Q2HR PRN PRN Reason: CIWA 8 or 9 Last Admin: 11/26/20 02:42 Dose: 1 mg Documented by: Lorazepam (Lorazepam 2 Mg/Ml Inj) 1 mg IV Q1HR PRN PRN Reason: CIWA 10 to 15 Last Admin: 11/26/20 06:30 Dose: 1 mg Documented by: Metoprolol Tartrate (Metoprolol Tartrate 12.5 Mg Tab) 12.5 mg PO BID [facility] Last Admin: 11/26/20 09:35 Dose: 12.5 mg Documented by: Naloxone HCl (Naloxone 0.4 Mg/Ml 1 Ml Vial) 0.2 mg IV Q2M PRN PRN Reason: Opioid Reversal Nicotine (Nicotine 21mg/24hr Patch) 1 patch TRANSDERM DAILY [facility] Last Admin: 11/26/20 09:41 Dose: Not Given Documented by: Patient's Own ( Benzoyl Peroxide 1 Applic Applic) 1 applic TOPICAL DAILY [facility] Last Admin: 11/26/20 07:48 Dose: Not Given Documented by: Patient's Own ( Clindamycin Topical Soln 1 Applic Applic ) 1 applic TOPICAL DAILY [facility] Last Admin: 11/26/20 07:48 Dose: Not Given Documented by: Patient's Own ( Dextroamphetamine/Amphetamine [ Adderall] 10 Mg Tablet) 10 mg PO BID@0800,1400 [facility] Last Admin: 11/26/20 07:48 Dose: Not Given Documented by: Prednisone (Prednisone 10 Mg Tab) 10 mg PO DAILY [facility] Last Admin: 11/26/20 09:36 Dose: 10 mg Documented by: Thiamine HCl (Thiamine 100 Mg Tab) 100 mg PO BID-W/MEALS [facility] Last Admin: 11/26/20 06:30 Dose: 100 mg Documented by: Past medical history to include: Alcoholism. Smokes cigarettes. Rheumatoid arthritis Social history: , lives with his . 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 Has been drinking significantly for close to 18 years. Also does marijuana. Family history: Reviewed, noncontributory to presentation Physical examination: VITAL SIGNS: 97.8, 65, 16, 94 x 56, 98% room air GENERAL: Laying in bed, awake EYES: Pupils equal. Conjunctiva normal, strabismus. NECK: JVD not raised; masses not palpable. HEART: First and second heart sounds are normal; no edema. LUNGS: Respiratory rate normal; slightly decreased breath sound. ABDOMEN: Soft, nontender, liver spleen not palpable, no masses palpable. PSYCH: Alert and oriented x3; mood and affect mild anxious NEUROLOGICAL: Cranial nerves grossly intact; no facial asymmetry, power and sensation grossly intact. INVESTIGATIONS, reviewed in the clinical context: WBC 9.8 hemoglobin 13.8 platelets 370 potassium 3.6 creatinine 0.82 Serum alcohol 71 Coronavirus [PCR] not detected Assessment and plan: -Acute early alcohol withdrawal syndrome-improving Decreased Valium 2 mg every 8, and Lopressor 12.5 mg twice daily. 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 Patient would prefer naltrexone and discharge. Not keen for disulfiram -Chronic nicotine dependence, cigarette use. 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 Continue. Patient to follow-up with the follow up rep upon discharge. Patient had an episode of alcohol withdrawal today. Now better. We will keep the patient on current dose of Valium and Lopressor. Doing EEG to rule out seizure. Discussed at length with the patient.
[2020-11-26] MEDS: HYDROcodone/APAP 7.5-325MG 1 EACH TAB PO PRN (23:56)
[2020-11-27] MEDS: THIAMINE 100 MG TAB PO SCH (06:19)
[2020-11-27 08:40] VITALS: BP 106/71; PULSE 68; RESP 20; TEMP 97.9
[2020-11-27] MEDS: METOPROLOL TARTRATE 12.5 MG TAB PO SCH (08:48)
[2020-11-27] MEDS: NICOTINE 21MG/24HR PATCH TRANSDERM SCH (08:48)
[2020-11-27] MEDS: predniSONE 10 MG TAB PO SCH (08:48)
[2020-11-27] MEDS: FAMOTIDINE 20 MG TAB PO SCH (08:48)
[2020-11-27] MEDS: LORazepam 2 MG/ML INJ IV PRN (08:49)
[2020-11-27] MEDS: diazePAM 2 MG TAB PO SCH (08:49)
[2020-11-27] MEDS: BENZOYL PEROXIDE TOPICAL SCH (10:00)
[2020-11-27] MEDS: PATIENT'S OWN (Dextroamphetamine/Amphetamine [Adderall] 10 MG Tablet) PO SCH (10:00)
[2020-11-27] MEDS: CLINDAMYCIN TOPICAL SCH (10:00)
[2020-11-27 11:33] VITALS: BMI 20.2
--- NOTE | 2020-11-27 15:59 | P.DS ---
Providers Date of admission: 11/23/20 23:22 Expected date of discharge: 11/27/20 Attending physician: David Connors Consults: 11/23/20 23:28 Consult Physician Routine Consulting Provider: Danis Paz Consult Reason/Comments: Alcohol withdrawal Do you want consulting provider notified?: Already Contacted Primary care physician: John Puente [facility] Course: Chief Complaint: Increased alcohol intake History of presenting complaint: This is a 40-year-old patient who follows with Dr. John Puente. Patient's been drinking excessive alcohol for quite some time. Patient presented to the ER yesterday evening with alcohol withdrawal symptoms including tremors and anxious. Patient has been trying to quit unable to do the same. He drinks about a fifth a day. Has been drinking for For good 18 years. Also smokes cigarettes. Patient's appetite has not been good for last 10 days. Anxious. He started on CIWA scale. No abdominal pain. Patient is put on Valium and beta nevin for control in the sympathetic drive. Pepcid for gastritis. Today: Patient had declined EEG. He is concerned about his hair getting spoiled. I spoke to him and his on face time and did talk about not allowed to drive because of [place] law. Outpatient follow-up with neurology. Other questions were answered. Again patient was counseled against the use of marijuana, smoking, alcohol Discussion and discharge planning more than 35 minutes Past medical history to include: Alcoholism. Smokes cigarettes. Rheumatoid arthritis Social history: , lives with his . 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 Has been drinking significantly for close to 18 years. Also does marijuana. Family history: Reviewed, noncontributory to presentation Physical examination: VITAL SIGNS: 97.9, 68, 20, 106/71, 100% room air GENERAL: Sitting up, comfortable EYES: Pupils equal. Conjunctiva normal, strabismus. NECK: JVD not raised; masses not palpable. HEART: First and second heart sounds are normal; no edema. LUNGS: Respiratory rate normal; slightly decreased breath sound. ABDOMEN: Soft, nontender, liver spleen not palpable, no masses palpable. PSYCH: Alert and oriented x3; mood and affect mild anxious NEUROLOGICAL: Cranial nerves grossly intact; no facial asymmetry, power and sensation grossly intact. INVESTIGATIONS, reviewed in the clinical context: WBC 9.8 hemoglobin 13.8 platelets 370 potassium 3.6 creatinine 0.82 Serum alcohol 71 Coronavirus [PCR] not detected Assessment and plan: -Acute early alcohol withdrawal corrected Decreased Valium 2 mg every 8-discontinued, and Lopressor 12.5 mg twice daily. -Chronic alcohol use disorder hospital manager to give options to the patient regarding counseling. Naltrexone 50 mg daily for 2 weeks -Chronic nicotine dependence, cigarette use. Nicotine patch -Recreational marijuana use Advised against the use of same -Anorexia from alcoholism Appetite improved -GERD, chronic gastritis likely from alcoholism Pepcid -Chronic rheumatoid arthritis Patient is on a maintenance dose of prednisone. Continue. Patient to follow-up with the dental equipment installer and servicer upon discharge. Disposition: Home Patient told not to drive until further notice until followed up with neurology Patient Condition at Discharge: Fair Plan - Discharge Summary New Discharge Prescriptions: New Naltrexone HCl [Revia] 50 mg PO DAILY #14 tablet Nicotine 21Mg/24Hr Patch [Habitrol] 1 patch TRANSDERM DAILY #14 patch Famotidine [Pepcid] 20 mg PO BID #60 tab Thiamine [Vitamin B-1] 100 mg PO BID-W/MEALS #60 tab Continue predniSONE 10 mg PO DAILY HYDROcodone/APAP 7.5-325MG [[place] 7.5-325] 1 tab PO Q6HR PRN PRN Reason: Pain Dextroamphetamine/Amphetamine [Adderall] 10 mg PO BID Cyclobenzaprine [Flexeril] 10 mg PO DAILY PRN PRN Reason: Muscle Spasm LORazepam [Ativan] 1 mg PO Q6H PRN PRN Reason: Anxiety Clindamycin Topical Soln [Cleocin-T Topical Soln] 1 applic TOPICAL DAILY Benzoyl Peroxide [Benzac AC Wash] 1 applic TOPICAL DAILY Changed Metoprolol Tartrate [Lopressor] 12.5 tab PO BID #0 Discontinued Ibuprofen [Motrin] 800 mg PO BID PRN PRN Reason: Moderate To Severe Pain Discharge Medication List HYDROcodone/APAP 7.5-325MG [[place] 7.5-325] 1 tab PO Q6HR PRN 10/10/17 [History] predniSONE 10 mg PO DAILY 10/10/17 [History] Benzoyl Peroxide [Benzac AC Wash] 1 applic TOPICAL DAILY 11/23/20 [History] Clindamycin Topical Soln [Cleocin-T Topical Soln] 1 applic TOPICAL DAILY 11/23/20 [History] Dextroamphetamine/Amphetamine [Adderall] 10 mg PO BID 11/23/20 [History] LORazepam [Ativan] 1 mg PO Q6H PRN 11/23/20 [History] Cyclobenzaprine [Flexeril] 10 mg PO DAILY PRN 11/24/20 [History] Famotidine [Pepcid] 20 mg PO BID #60 tab 11/27/20 [Rx] Metoprolol Tartrate [Lopressor] 12.5 tab PO BID #0 11/27/20 [Rx] Naltrexone HCl [Revia] 50 mg PO DAILY #14 tablet 11/27/20 [Rx] Nicotine 21Mg/24Hr Patch [Habitrol] 1 patch TRANSDERM DAILY #14 patch 11/27/20 [Rx] Thiamine [Vitamin B-1] 100 mg PO BID-W/MEALS #60 tab 11/27/20 [Rx] Follow up Appointment(s)/Referral(s): John Puente MD [Primary Care Provider] - 12/03/20 2:00 pm Zayra Simental MD [Medical Doctor] - 1 Week Patient Instructions/Handouts: Alcohol Withdrawal (ED) Discharge Disposition: HOME SELF-CARE
== END 2020-11-27 11:51 | disposition home or self-care (01) | DRG 897 ==
LOC: EC 20:38 → 4SSUR 23:22 → 3SCARD 11-24 16:13
PROVIDERS: ADMIT Hospitalist; ATTEND Hospitalist
PROC: HZ2ZZZZ Detoxification Services for Substance Abuse Treatment (ICD-10-PCS; principal; 2020-11-23)
DX: F10.231 Alcohol dependence with withdrawal delirium (principal); F10.229 Alcohol dependence with intoxication, unspecified; R63.0 Anorexia; K29.50 Unspecified chronic gastritis without bleeding; M06.9 Rheumatoid arthritis, unspecified; F41.9 Anxiety disorder, unspecified; K21.9 Gastro-esophageal reflux disease without esophagitis; R00.2 Palpitations; F17.210 Nicotine dependence, cigarettes, uncomplicated; Z20.822 Contact with and (suspected) exposure to COVID-19; Y90.3 Blood alcohol level of 60-79 mg/100 ml; Z88.0 Allergy status to penicillin; Z71.41 Alcohol abuse counseling and surveillance of alcoholic; Z71.6 Tobacco abuse counseling; Z68.20 Body mass index [BMI] 20.0-20.9, adult
CPT/HCPCS: 36415; 80053; 80320; 81001; 83690; 83735; 85025; 87635; 99285

== ENCOUNTER 2020-12-01 17:12 | Emergency (ER) | payer OTHER ==
[2020-12-01] MEDS ORDERED: SODIUM CHLORIDE 0.9% 500 ML 500 ML IV STA (18:00)
--- NOTE | 2020-12-01 18:02 | ED ---
General Adult HPI - General Chief complaint: Abdominal Pain Stated complaint: Revisit/Abd Pain Time Seen by Provider: 12/01/20 17:15 Source: patient, RN notes reviewed, old records reviewed Limitations: no limitations - History of Present Illness Initial comments: This is a 40-year-old male who presents emergency Department complaining of diffuse abdominal pain. Patient states he was just discharged from from the hospital for alcohol withdrawals. Patient states she was in the hospital for 7 days. Patient states his abdominal pain started shortly after he left and is gotten worse. Patient denies any nausea vomiting or diarrhea. Patient states he did finally have a decent bowel movement last evening. Patient denies any chest pain difficulty breathing shortness breath per patient states he is eating. Patient does indicate that the pain is higher up in the abdomen than lower. - Related Data Home Medications Medication Instructions Recorded Confirmed HYDROcodone/APAP 7.5-325MG [[place] 1 tab PO Q6HR PRN 10/10/17 12/01/20 7.5-325] predniSONE 10 mg PO DAILY 10/10/17 12/01/20 Benzoyl Peroxide [Benzac AC Wash] 1 applic TOPICAL DAILY 11/23/20 12/01/20 Clindamycin Topical Soln 1 applic TOPICAL DAILY 11/23/20 12/01/20 [Cleocin-T Topical Soln] Dextroamphetamine/Amphetamine 10 mg PO BID PRN 11/23/20 12/01/20 [Adderall] LORazepam [Ativan] 1 mg PO Q6H PRN 11/23/20 12/01/20 Cyclobenzaprine [Flexeril] 10 mg PO TID PRN 11/24/20 12/01/20 Allergies Allergy/AdvReac Type Severity Reaction Status Date / Time Penicillins Allergy Unknown Verified 12/01/20 18:30 Review of Systems ROS Statement: Those systems with pertinent positive or pertinent negative responses have been documented in the HPI. ROS Other: All systems not noted in ROS Statement are negative. Past Medical History Past Medical History: Rheumatoid Arthritis (RA) Additional Past Medical History / Comment(s): ankylitic spondolysis , psoriatic arthritis, dish (disinsemminated idiopathic skeletal hypertosis), hematuria History of Any Multi-Drug Resistant Organisms: None Reported Past Surgical History: Appendectomy Additional Past Surgical History / Comment(s): back, cage in spine Past Anesthesia/Blood Transfusion Reactions: Previous Problems w/ Anesthesia Additional Past Anesthesia/Blood Transfusion Reaction / Comment(s): reaction to anesthesia when having injections to sternum Past Psychological History: Anxiety, Depression Smoking Status: Current every day smoker Past Alcohol Use History: Abuse, Daily Past Drug Use History: Marijuana - Past Family History Mother Family Medical History: Coronary Artery Disease (CAD), Diabetes Mellitus, Hypertension Additional Family Medical History / Comment(s): CABG Father History Unknown: Yes Family Medical History: Cancer Additional Family Medical History / Comment(s): Prostate CA, alcoholic General Exam - General Exam Comments Initial Comments: GENERAL: Patient is well-developed and well-nourished. Patient is nontoxic and well- hydrated and is in mild distress. ENT: Neck is soft and supple. No significant lymphadenopathy is noted. Oropharynx is clear. Moist mucous membranes. Neck has full range of motion without eliciting any pain. EYES: The sclera were anicteric and conjunctiva were pink and moist. Extraocular movements were intact and pupils were equal round and reactive to light. Eyelids were unremarkable. PULMONARY: Unlabored respirations. Good breath sounds bilaterally. No audible rales rhonchi or wheezing was noted. CARDIOVASCULAR: There is a regular rate and rhythm without any murmurs gallops or rubs. ABDOMEN: Abdomen is tender in the left and right upper quadrant area but there is no rebound or guarding SKIN: Skin is clear with no lesions or rashes and otherwise unremarkable. NEUROLOGIC: Patient is alert and oriented x3. Cranial nerves II through XII are grossly intact. Motor and sensory are also intact. Normal speech, volume and content. Symmetrical smile. MUSCULOSKELETAL: Normal extremities with adequate strength and full range of motion. No lower extremity swelling or edema. No calf tenderness. LYMPHATICS: No significant lymphadenopathy is noted PSYCHIATRIC: Normal psychiatric evaluation. Limitations: no limitations Course Vital Signs 12/01/20 12/01/20 12/01/20 17:13 18:25 19:08 Temperature 97.8 F Pulse Rate 97 83 70 Respiratory 19 18 16 Rate Blood Pressure 124/74 123/89 123/87 O2 Sat by Pulse 100 99 100 Oximetry Medical Decision Making - Medical Decision Making I will begin to reevaluate the patient he was hungry wanted something he stated his abdominal pain was already better. EKG shows normal sinus rhythm at 70 bpm NV interval 252 QRS on a 14 QT interval 376 QTC is 428 per patient's EKG shows no ST segment elevation or depression. - Lab Data Result diagrams: 12/01/20 18:23 12/01/20 18:23 Lab Results 12/01/20 12/01/20 12/01/20 Range/Units 18:23 18:23 18:23 WBC 10.8 H (3.8-10.6) k/uL RBC 4.31 (4.30-5.90) m/uL Hgb 13.1 (13.0-17.5) gm/dL Hct 40.6 (39.0-53.0) % MCV 94.3 (80.0-100.0) fL MCH 30.4 (25.0-35.0) pg MCHC 32.3 (31.0-37.0) g/dL RDW 13.2 (11.5-15.5) % Plt Count 372 (150-450) k/uL MPV 6.9 Neutrophils % 50 % Lymphocytes % 38 % Monocytes % 7 % Eosinophils % 2 % Basophils % 1 % Neutrophils # 5.4 (1.3-7.7) k/uL Lymphocytes # 4.1 (1.0-4.8) k/uL Monocytes # 0.7 (0-1.0) k/uL Eosinophils # 0.2 (0-0.7) k/uL Basophils # 0.1 (0-0.2) k/uL Sodium 138 (137-145) mmol/L Potassium 3.9 (3.5-5.1) mmol/L Chloride 97 L (98-107) mmol/L Carbon Dioxide 31 H (22-30) mmol/L Anion Gap 10 mmol/L BUN 12 (9-20) mg/dL Creatinine 0.88 (0.66-1.25) mg/dL Est GFR (CKD-EPI)AfAm >90 (>60 ml/min/1.73 sqM) Est GFR (CKD-EPI)NonAf >90 (>60 ml/min/1.73 sqM) Glucose 137 H (74-99) mg/dL Calcium 9.6 (8.4-10.2) mg/dL Magnesium 2.1 (1.6-2.3) mg/dL Total Bilirubin 0.2 (0.2-1.3) mg/dL AST 32 (17-59) U/L ALT 18 (4-49) U/L Alkaline Phosphatase 100 (38-126) U/L Total Protein 7.2 (6.3-8.2) g/dL Albumin 4.3 (3.5-5.0) g/dL Amylase 94 (30-110) U/L Lipase 90 (23-300) U/L Urine Color Yellow Urine Appearance Clear (Clear) Urine pH 6.0 (5.0-8.0) Ur Specific [place] 1.024 (1.001-1.035) Urine Protein Trace H (Negative) Urine Glucose (UA) Negative (Negative) Urine Ketones Negative (Negative) Urine Blood Small H (Negative) Urine Nitrite Negative (Negative) Urine Bilirubin Negative (Negative) Urine Urobilinogen 2.0 (<2.0) mg/dL Ur Leukocyte Esterase Negative (Negative) Urine RBC 5 (0-5) /hpf Urine WBC <1 (0-5) /hpf Ur Squamous Epith Cells 1 (0-4) /hpf Urine Mucus Few H (None) /hpf Serum Alcohol <10 mg/dL Disposition Clinical Impression: Constipation Disposition: HOME SELF-CARE Condition: Good Instructions (If sedation given, give patient instructions): Constipation (ED) Is patient prescribed a controlled substance at d/c from ED?: No Referrals: John Puente MD [Primary Care Provider] - 1-2 days Time of Disposition: 19:50
[2020-12-01 18:30] LABS: Basophils # (A) 0.1 k/uL (0-0.2); Basophils % (A) 1 %; Eosinophils # (A) 0.2 k/uL (0-0.7); Eosinophils % (A) 2 %; HCT 40.6 % (39.0-53.0); HGB 13.1 gm/dL (13.0-17.5); Lymphocytes # (A) 4.1 k/uL (1.0-4.8); Lymphocytes % (A) 38 %; MCH 30.4 pg (25.0-35.0); MCHC 32.3 g/dL (31.0-37.0); MCV 94.3 fL (80.0-100.0); Mean Platelet Volume 6.9; Monocytes # (A) 0.7 k/uL (0-1.0); Monocytes % (A) 7 %; Neutrophils # (A) 5.4 k/uL (1.3-7.7); Neutrophils % (A) 50 %; Platelet Count 372 k/uL (150-450); RBC 4.31 m/uL (4.30-5.90); RDW 13.2 % (11.5-15.5); WBC 10.8 k/uL (3.8-10.6)
[2020-12-01 18:40] LABS: ALT 18 U/L (4-49); AST 32 U/L (17-59); African American GFR (CKD) >90 (>60 ml/min/1.73 sqM); Albumin 4.3 g/dL (3.5-5.0); Alcohol <10 mg/dL; Alkaline Phosphatase 100 U/L (38-126); Amylase 94 U/L (30-110); Anion Gap 10 mmol/L; Appearance,Urine Clear (Clear); Bilirubin,Urine Negative (Negative); Blood Urea Nitrogen 12 mg/dL (9-20); Blood,Urine Small (Negative); Calcium 9.6 mg/dL (8.4-10.2); Carbon Dioxide 31 mmol/L (22-30); Chloride 97 mmol/L (98-107); Color,Urine Yellow; Glucose 137 mg/dL (74-99); Glucose,Urine (UA) Negative (Negative); Ketones,Urine Negative (Negative); Leukocyte Esterase,Urine Negative (Negative); Lipase 90 U/L (23-300); Magnesium 2.1 mg/dL (1.6-2.3); Mucus,Urine Few /hpf; Nitrite,Urine Negative (Negative); Non-African American GFR(CKD) >90 (>60 ml/min/1.73 sqM); Protein,Urine Trace (Negative); RBC,Urine 5 /hpf (0-5); Sodium 138 mmol/L (137-145); Specific Gravity,Urine 1.024 (1.001-1.035); Squamous Epithelial Cell,Urine 1 /hpf (0-4); Total Bilirubin 0.2 mg/dL (0.2-1.3); Total Protein 7.2 g/dL (6.3-8.2); WBC,Urine <1 /hpf (0-5)
[2020-12-01 18:55] LABS: Potassium 3.9 mmol/L (3.5-5.1)
--- NOTE | 2020-12-01 19:04 | XR ---
EXAM: Abdomen radiograph. HISTORY: Pain. TECHNIQUE: Upright AP view. COMPARISON: CT 11/28/2016. FINDINGS: There are nondilated bowel loops with a nonobstructive pattern. No pneumoperitoneum. There is moderat e amount of stool throughout the colon. There are no pathologic calcifications. No acute osseous abno rmality seen. Lumbosacral fusion seen. IMPRESSION: Nonobstructive bowel gas pattern. Moderate stool burden.
[2020-12-01 19:15] VITALS: RESP 16
[2020-12-01 20:07] VITALS: BP 122/84; PULSE 80; TEMP 98.1
== END 2020-12-01 20:07 | disposition home or self-care (01) ==
LOC: EC 17:12
DX: K59.00 Constipation, unspecified (principal); M06.9 Rheumatoid arthritis, unspecified; F32.9 Major depressive disorder, single episode, unspecified; F41.9 Anxiety disorder, unspecified; F17.200 Nicotine dependence, unspecified, uncomplicated; F12.90 Cannabis use, unspecified, uncomplicated; Z83.3 Family history of diabetes mellitus; Z82.49 Family history of ischemic heart disease and other diseases of the circulatory system; Z79.891 Long term (current) use of opiate analgesic; Z79.52 Long term (current) use of systemic steroids; Z79.899 Other long term (current) drug therapy
CPT/HCPCS: 36415; 93005; 80053; 82150; 83690; 83735; 85025; 81001; 74018; 96360; 96361; 99284; G0480; 80320

== ENCOUNTER 2022-05-24 19:17 | Observation (INO) | payer OTHER ==
[2022-05-24] MEDS ORDERED: SODIUM CHLORIDE 0.9% 1,000 ML IV STA (20:32)
[2022-05-24] MEDS ORDERED: ONDANSETRON 4 MG/2 ML VIAL IVP STA (20:34)
--- NOTE | 2022-05-24 21:00 | XR ---
EXAMINATION TYPE: XR chest 2V DATE OF EXAM: 05/24/2022 COMPARISON: NONE HISTORY: Cough and fever. TECHNIQUE: Frontal and lateral views of the chest are obtained. FINDINGS: There is some faint peripheral increased opacities in the lower lungs somewhat nodular in shape on the left. No pleural effusion or pneumothorax seen bilaterally. The cardiac silhouette size is within normal limits. The osseous structures are intact. IMPRESSION: Peripheral bilateral lower lung increased opacities. Correlate to exclude covid-19 infec tion.
[2022-05-24 21:15] LABS: ALT 26 U/L (4-49); AST 59 U/L (17-59); African American GFR (CKD) 46 (>60 ml/min/1.73 sqM); Albumin 4.5 g/dL (3.5-5.0); Alcohol <10 mg/dL; Alkaline Phosphatase 132 U/L (38-126); Anion Gap 12 mmol/L; Blood Urea Nitrogen 23 mg/dL (9-20); Calcium 8.7 mg/dL (8.4-10.2); Carbon Dioxide 26 mmol/L (22-30); Chloride 91 mmol/L (98-107); Glucose 115 mg/dL (74-99); Lipase 159 U/L (23-300); Non-African American GFR(CKD) 40 (>60 ml/min/1.73 sqM); Potassium 4.2 mmol/L (3.5-5.1); Sodium 129 mmol/L (137-145); Total Bilirubin 0.5 mg/dL (0.2-1.3); Total Protein 7.7 g/dL (6.3-8.2)
[2022-05-24 21:25] LABS: HCT 44.7 % (39.0-53.0); HGB 15.2 gm/dL (13.0-17.5); MCH 30.7 pg (25.0-35.0); MCV 90.4 fL (80.0-100.0); Mean Platelet Volume 8.6; Platelet Count 217 k/uL (150-450); RBC 4.94 m/uL (4.30-5.90); WBC 3.2 k/uL (3.8-10.6)
[2022-05-24 22:05] LABS: Band Neutrophils % 15 %; Lymphocytes # (M) 1.09 k/uL (1.0-4.8); Monocytes # (M) 0.64 k/uL (0-1.0); Neutrophils % (M) 32 %; Nucleated Red Blood Cells 0 /100 WBC (0-0); Total Cells Counted 200
[2022-05-24] MEDS ORDERED: NALOXONE 0.4 MG/ML 1 ML VIAL IV PRN (22:11)
[2022-05-24] MEDS ORDERED: ACETAMINOPHEN TAB 325 MG TAB PO PRN (22:11)
[2022-05-24] MEDS ORDERED: ONDANSETRON 4 MG/2 ML VIAL IVP PRN (22:11)
--- NOTE | 2022-05-24 22:11 | ED ---
General Adult HPI - General Chief complaint: Alcohol Stated complaint: dizziness Time Seen by Provider: 05/24/22 19:31 Source: patient Mode of arrival: wheelchair Limitations: no limitations - History of Present Illness Initial comments: 41-year-old male with past history of alcohol abuse, dilated cardiomyopathy, psoriatic arthritis who presents emergency Department with nausea, vomiting and myalgias. Patient states he has been sick for the past 5 days. He began having 102 fever with intractable nausea and vomiting. He has been taking Tylenol at home for his symptoms without any improvement. He has been unable to hold down anything to eat or drink for 5 days. No sick contacts. States that he has been unable to drink because he has been so sick. Previously he drank a fifth a day. He admits to tremors. No hallucinations. No seizures. No other alleviating, precipitating or modifying factors - Related Data Home Medications Medication Instructions Recorded Confirmed HYDROcodone/APAP 7.5-325MG [[place] 1 tab PO Q6HR PRN 10/10/17 05/24/22 7.5-325] predniSONE 10 mg PO DAILY 10/10/17 05/24/22 Dextroamphetamine/Amphetamine 10 mg PO BID 11/23/20 05/24/22 [Adderall] LORazepam [Ativan] 1 mg PO Q6H PRN 11/23/20 05/24/22 Cyclobenzaprine [Flexeril] 10 mg PO TID PRN 11/24/20 05/24/22 Ibuprofen [Motrin Ib] 800 mg PO TID PRN 05/24/22 05/24/22 Metoprolol Succinate (ER) [Toprol 25 mg PO DAILY 05/24/22 05/24/22 Xl] Allergies Allergy/AdvReac Type Severity Reaction Status Date / Time Penicillins Allergy Unknown Verified 05/24/22 21:18 Review of Systems ROS Statement: Those systems with pertinent positive or pertinent negative responses have been documented in the HPI. ROS Other: All systems not noted in ROS Statement are negative. Past Medical History Past Medical History: Rheumatoid Arthritis (RA) Additional Past Medical History / Comment(s): ankylitic spondolysis , psoriatic arthritis, dish (disinsemminated idiopathic skeletal hypertosis), hematuria History of Any Multi-Drug Resistant Organisms: None Reported Past Surgical History: Appendectomy Additional Past Surgical History / Comment(s): back, cage in spine Past Anesthesia/Blood Transfusion Reactions: Previous Problems w/ Anesthesia Additional Past Anesthesia/Blood Transfusion Reaction / Comment(s): reaction to anesthesia when having injections to sternum Past Psychological History: Anxiety, Depression Smoking Status: Current every day smoker Past Alcohol Use History: Abuse, Daily Past Drug Use History: Marijuana - Past Family History Mother Family Medical History: Coronary Artery Disease (CAD), Diabetes Mellitus, Hypertension Additional Family Medical History / Comment(s): CABG Father History Unknown: Yes Family Medical History: Cancer Additional Family Medical History / Comment(s): Prostate CA, alcoholic General Exam Limitations: no limitations General appearance: alert, in no apparent distress Head exam: Present: atraumatic, normocephalic, normal inspection Eye exam: Present: normal appearance, PERRL, EOMI. Absent: scleral icterus, conjunctival injection, periorbital swelling ENT exam: Present: normal exam, mucous membranes moist Neck exam: Present: normal inspection. Absent: tenderness, meningismus, lymphadenopathy Respiratory exam: Present: normal lung sounds bilaterally. Absent: respiratory distress, wheezes, rales, rhonchi, stridor Cardiovascular Exam: Present: regular rate, normal rhythm, normal heart sounds. Absent: systolic murmur, diastolic murmur, rubs, gallop, clicks GI/Abdominal exam: Present: soft, normal bowel sounds. Absent: distended, tenderness, guarding, rebound, rigid Extremities exam: Present: normal inspection, full ROM, normal capillary refill. Absent: tenderness, pedal edema, joint swelling, calf tenderness Back exam: Present: normal inspection Neurological exam: Present: alert, oriented X3, CN II-XII intact Psychiatric exam: Present: normal affect, normal mood Skin exam: Present: warm, dry, intact, normal color. Absent: rash Course Vital Signs 05/24/22 05/24/22 05/24/22 19:20 20:13 21:33 Temperature 97.2 F L Pulse Rate 94 98 92 Respiratory 16 18 18 Rate Blood Pressure 97/57 83/53 102/76 O2 Sat by Pulse 100 98 96 Oximetry Medical Decision Making - Medical Decision Making Upon arrival patient was placed into room 17. A thorough history and physical exam was performed. IV access is established and laboratory studies are conducted. Patient is swabbed for influenza. Laboratory studies reveal a sodium of 129. Creatinine 2. Influenza is detected. He was given a liter bolus of normal saline followed by 130 mL/h. Patient additionally given antiemetics. Recommended admission on CILA protocol. Patient was agreeable to this. Admitted to the floor in stable condition. Spoke with Florentin from [facility] who was agreeable to admission - Lab Data Result diagrams: 05/25/22 05:51 05/25/22 17:59 Lab Results 05/24/22 05/24/22 05/24/22 Range/Units 20:43 20:43 20:43 WBC 3.2 L (3.8-10.6) k/uL RBC 4.94 (4.30-5.90) m/uL Hgb 15.2 (13.0-17.5) gm/dL Hct 44.7 (39.0-53.0) % MCV 90.4 (80.0-100.0) fL MCH 30.7 (25.0-35.0) pg MCHC 34.0 (31.0-37.0) g/dL RDW 13.0 (11.5-15.5) % Plt Count 217 (150-450) k/uL MPV 8.6 Neutrophils % (Manual) 32 % Band Neuts % (Manual) 15 % Lymphocytes % (Manual) 34 % Monocytes % (Manual) 20 % Neutrophils # (Manual) 1.50 (1.3-7.7) k/uL Lymphocytes # (Manual) 1.09 (1.0-4.8) k/uL Monocytes # (Manual) 0.64 (0-1.0) k/uL Nucleated RBCs 0 (0-0) /100 WBC Manual Slide Review Performed Sodium 129 L (137-145) mmol/L Potassium 4.2 (3.5-5.1) mmol/L Chloride 91 L (98-107) mmol/L Carbon Dioxide 26 (22-30) mmol/L Anion Gap 12 mmol/L BUN 23 H (9-20) mg/dL Creatinine 2.02 H (0.66-1.25) mg/dL Est GFR (CKD-EPI)AfAm 46 (>60 ml/min/1.73 sqM) Est GFR (CKD-EPI)NonAf 40 (>60 ml/min/1.73 sqM) Glucose 115 H (74-99) mg/dL Plasma Lactic Acid Bren[place] (0.7-2.0) mmol/L Calcium 8.7 (8.4-10.2) mg/dL Total Bilirubin 0.5 (0.2-1.3) mg/dL AST 59 (17-59) U/L ALT 26 (4-49) U/L Alkaline Phosphatase 132 H (38-126) U/L Troponin I (0.000-0.034) ng/mL Total Protein 7.7 (6.3-8.2) g/dL Albumin 4.5 (3.5-5.0) g/dL Lipase 159 (23-300) U/L Serum Alcohol <10 mg/dL Influenza Type A RNA Detected H (Not Detectd) Influenza Type B (PCR) Not Detected (Not Detectd) 05/24/22 05/24/22 Range/Units 20:43 21:31 WBC (3.8-10.6) k/uL RBC (4.30-5.90) m/uL Hgb (13.0-17.5) gm/dL Hct (39.0-53.0) % MCV (80.0-100.0) fL MCH (25.0-35.0) pg MCHC (31.0-37.0) g/dL RDW (11.5-15.5) % Plt Count (150-450) k/uL MPV Neutrophils % (Manual) % Band Neuts % (Manual) % Lymphocytes % (Manual) % Monocytes % (Manual) % Neutrophils # (Manual) (1.3-7.7) k/uL Lymphocytes # (Manual) (1.0-4.8) k/uL Monocytes # (Manual) (0-1.0) k/uL Nucleated RBCs (0-0) /100 WBC Manual Slide Review Sodium (137-145) mmol/L Potassium (3.5-5.1) mmol/L Chloride (98-107) mmol/L Carbon Dioxide (22-30) mmol/L Anion Gap mmol/L BUN (9-20) mg/dL Creatinine (0.66-1.25) mg/dL Est GFR (CKD-EPI)AfAm (>60 ml/min/1.73 sqM) Est GFR (CKD-EPI)NonAf (>60 ml/min/1.73 sqM) Glucose (74-99) mg/dL Plasma Lactic Acid [place] 1.1 (0.7-2.0) mmol/L Calcium (8.4-10.2) mg/dL Total Bilirubin (0.2-1.3) mg/dL AST (17-59) U/L ALT (4-49) U/L Alkaline Phosphatase (38-126) U/L Troponin I <0.012 (0.000-0.034) ng/mL Total Protein (6.3-8.2) g/dL Albumin (3.5-5.0) g/dL Lipase (23-300) U/L Serum Alcohol mg/dL Influenza Type A RNA (Not Detectd) Influenza Type B (PCR) (Not Detectd) Disposition Clinical Impression: Alcohol withdrawal, Influenza A, Nausea and vomiting, TONY (acute kidney injury) Disposition: ADMITTED IP TO THIS HOSP Condition: Stable Is patient prescribed a controlled substance at d/c from ED?: No Time of Disposition: 22:11 Decision to Admit Reason: Admit from EC Decision Date: 05/24/22 Decision Time: 22:11
[2022-05-24] MEDS ORDERED: THIAMINE 100 MG/ML 2 ML VIAL IM STA (22:21)
[2022-05-24] MEDS ORDERED: LORazepam 2 MG/ML INJ IV PRN ×3 (22:21)
[2022-05-25] MEDS: SODIUM CHLORIDE 0.9% 1,000 ML IV SCH ×3 (01:07→21:10)
[2022-05-25] MEDS ORDERED: THIAMINE 100 MG/ML 2 ML VIAL IM STA (02:04)
[2022-05-25 06:55] LABS: HCT 41.9 % (39.0-53.0); HGB 14.1 gm/dL (13.0-17.5); MCH 31.4 pg (25.0-35.0); MCHC 33.6 g/dL (31.0-37.0); MCV 93.5 fL (80.0-100.0); Mean Platelet Volume 8.2; Platelet Count 210 k/uL (150-450); RBC 4.48 m/uL (4.30-5.90); RDW 12.6 % (11.5-15.5); WBC 2.7 k/uL (3.8-10.6)
[2022-05-25 07:16] LABS: African American GFR (CKD) >90 (>60 ml/min/1.73 sqM); Anion Gap 8 mmol/L; Blood Urea Nitrogen 17 mg/dL (9-20); Calcium 8.1 mg/dL (8.4-10.2); Carbon Dioxide 23 mmol/L (22-30); Chloride 97 mmol/L (98-107); Glucose 105 mg/dL (74-99); Non-African American GFR(CKD) 79 (>60 ml/min/1.73 sqM); Potassium 3.9 mmol/L (3.5-5.1); Sodium 128 mmol/L (137-145)
[2022-05-25] MEDS: THIAMINE 100 MG TAB PO SCH (08:05)
[2022-05-25 08:22] LABS: Neutrophils % (M) 18 %
[2022-05-25 08:23] LABS: Anisocytosis (M) Present; Band Neutrophils % 3 %; Eosinophils # (M) 0.05 k/uL (0-0.7); Lymphocytes # (M) 1.67 k/uL (1.0-4.8); Monocytes # (M) 0.41 k/uL (0-1.0); Nucleated Red Blood Cells 0 /100 WBC (0-0); Poikilocytosis (M) Present; Total Cells Counted 100
[2022-05-25] MEDS ORDERED: IPRATROPIUM-ALBUTEROL 3 ML NEB INHALATION PRN (09:41)
[2022-05-25] MEDS ORDERED: predniSONE 10 MG TAB PO SCH (09:45)
[2022-05-25] MEDS: PANTOPRAZOLE 40 MG/10 ML VIAL IVP SCH (10:17)
[2022-05-25] MEDS: IPRATROPIUM-ALBUTEROL 3 ML NEB INHALATION SCH ×3 (12:02→20:02)
[2022-05-25] MEDS ORDERED: OSELTAMIVIR 75 MG CAP PO SCH (14:30)
[2022-05-25] MEDS: OSELTAMIVIR 75 MG CAP PO SCH ×2 (15:47→21:15)
[2022-05-25] MEDS ORDERED: SODIUM CHLORIDE 0.9% 1,000 ML IV SCH (17:15)
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
[2022-05-25] MEDS: HEPARIN SODIUM,PORCINE/PF 5,000 UNIT/0.5 ML SYRINGE SQ SCH (21:15)
[2022-05-26 03:54] VITALS: BP 108/65; PULSE 86; RESP 18; TEMP 98.4
[2022-05-26] MEDS ORDERED: LORazepam 1 MG TAB PO STA (06:49)
[2022-05-26] MEDS: OSELTAMIVIR 75 MG CAP PO SCH (08:19)
[2022-05-26] MEDS: THIAMINE 100 MG TAB PO SCH (08:19)
[2022-05-26] MEDS: PANTOPRAZOLE 40 MG/10 ML VIAL IVP SCH (08:19)
[2022-05-26] MEDS: HEPARIN SODIUM,PORCINE/PF 5,000 UNIT/0.5 ML SYRINGE SQ SCH (08:19)
[2022-05-26] MEDS: IPRATROPIUM-ALBUTEROL 3 ML NEB INHALATION SCH (09:20)
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
== END 2022-05-26 09:15 | disposition home or self-care (01) ==
LOC: EC 19:17 → 5NMEDONC 22:11
PROVIDERS: ADMIT Hospitalist; ATTEND Hospitalist
DX: J10.1 Influenza due to other identified influenza virus with other respiratory manifestations (principal); F10.239 Alcohol dependence with withdrawal, unspecified; N17.9 Acute kidney failure, unspecified; I42.0 Dilated cardiomyopathy; E87.1 Hypo-osmolality and hyponatremia; E86.1 Hypovolemia; K21.9 Gastro-esophageal reflux disease without esophagitis; K29.50 Unspecified chronic gastritis without bleeding; F12.90 Cannabis use, unspecified, uncomplicated; L40.50 Arthropathic psoriasis, unspecified; M06.9 Rheumatoid arthritis, unspecified; F32.A Depression, unspecified; F41.9 Anxiety disorder, unspecified; F17.210 Nicotine dependence, cigarettes, uncomplicated; Y90.0 Blood alcohol level of less than 20 mg/100 ml; Z79.52 Long term (current) use of systemic steroids; Z79.899 Other long term (current) drug therapy; Z88.0 Allergy status to penicillin
CPT/HCPCS: 96361 ×2; 96372 ×2; 96375 ×2; 96376; 96374; 99285; 36415; 94640 ×2; 94760; 80053; 80048; 83605; 83690; 83735; 84295; 84484; 85025 ×2; 87502; 84145; 71046; G0378 ×3; G0480; J2060; J3411; J2405; J7512; C9113 ×2; J1644 ×2; 80320

== ENCOUNTER 2022-07-07 15:46 | Emergency (ER) | payer OTHER ==
[2022-07-07 15:53] VITALS: RESP 18; TEMP 98
--- NOTE | 2022-07-07 16:56 | ED ---
Fall HPI - General Chief Complaint: Fall Stated Complaint: Fall,Head Injury Time Seen by Provider: 07/07/22 16:11 Source: patient Mode of arrival: ambulatory - History of Present Illness Initial Comments: Patient is a 41-year-old male presenting with chief complaint of head injury. Patient states that he slipped and fell down 2 stairs in his home, hitting the back of his head on each one. His at bedside states that he lost consciousness for a few seconds. Denies any blood thinners. He is complaining of frontal headache and neck pain. Also complaining of right shoulder and elbow pain as well as right-sided hip pain. He denies any vision or hearing changes, nausea, vomiting, dizziness, chest pain, difficulty breathing, abdominal pain. - Related Data Home Medications Medication Instructions Recorded Confirmed HYDROcodone/APAP 7.5-325MG [[place] 1 tab PO Q6HR PRN 10/10/17 05/24/22 7.5-325] predniSONE 10 mg PO DAILY 10/10/17 05/24/22 Dextroamphetamine/Amphetamine 10 mg PO BID 11/23/20 05/24/22 [Adderall] LORazepam [Ativan] 1 mg PO Q6H PRN 11/23/20 05/24/22 Cyclobenzaprine [Flexeril] 10 mg PO TID PRN 11/24/20 05/24/22 Ibuprofen [Motrin Ib] 800 mg PO TID PRN 05/24/22 05/24/22 Metoprolol Succinate (ER) [Toprol 25 mg PO DAILY 05/24/22 05/24/22 XL] Previous Rx's Medication Instructions Recorded Benzonatate [Tessalon Perles] 100 mg PO TID PRN 4 Days #12 05/26/22 capsule Ondansetron Odt [Zofran Odt] 4 mg PO Q8HR PRN 3 Days #12 tab 05/26/22 Oseltamivir [Tamiflu] 75 mg PO Q12HR 4 Days #8 cap 05/26/22 Pantoprazole [Protonix] 40 mg PO DAILY #30 tab 05/26/22 Thiamine [Vitamin B-1] 100 mg PO DAILY #30 tab 05/26/22 chlordiazePOXIDE HCl [Librium] 25 mg PO DIRECTED 6 Days #12 05/26/22 capsule Allergies Allergy/AdvReac Type Severity Reaction Status Date / Time Penicillins Allergy Unknown Verified 07/07/22 15:53 Review of Systems ROS Statement: Those systems with pertinent positive or pertinent negative responses have been documented in the HPI. ROS Other: All systems not noted in ROS Statement are negative. Past Medical History Past Medical History: Rheumatoid Arthritis (RA) Additional Past Medical History / Comment(s): ankylitic spondolysis , psoriatic arthritis, dish (disinsemminated idiopathic skeletal hypertosis), hematuria History of Any Multi-Drug Resistant Organisms: None Reported Past Surgical History: Appendectomy Additional Past Surgical History / Comment(s): back, cage in spine Past Anesthesia/Blood Transfusion Reactions: Previous Problems w/ Anesthesia Additional Past Anesthesia/Blood Transfusion Reaction / Comment(s): reaction to anesthesia when having injections to sternum Past Psychological History: Anxiety, Bipolar, Depression Smoking Status: Current every day smoker Past Alcohol Use History: Abuse, Daily Past Drug Use History: Marijuana - Past Family History Mother Family Medical History: Coronary Artery Disease (CAD), Diabetes Mellitus, Hypertension Additional Family Medical History / Comment(s): CABG Father History Unknown: Yes Family Medical History: Cancer Additional Family Medical History / Comment(s): Prostate CA, alcoholic General Exam Limitations: no limitations General appearance: alert, in no apparent distress Head exam: Present: atraumatic, normocephalic, normal inspection Eye exam: Present: normal appearance, EOMI. Absent: periorbital swelling, periorbital tenderness Neck exam: Present: normal inspection Respiratory exam: Present: normal lung sounds bilaterally. Absent: respiratory distress, wheezes, rales, rhonchi, stridor Cardiovascular Exam: Present: regular rate, normal rhythm, normal heart sounds. Absent: systolic murmur, diastolic murmur, rubs, gallop, clicks Neurological exam: Present: alert, oriented X3, CN II-XII intact Expanded Patient oriented to: Present: person, place, time Speech: Present: fluid speech Sensory exam: Upper Extremity Light Touch: Normal, Lower Extremity Light Touch: Normal Motor strength exam: RUE: 5, LUE: 5, RLE: 5, LLE: 5 Eye Response: (4) open spontaneously Motor Response: (6) obeys commands Verbal Response: (5) oriented [place] Total: 15 Psychiatric exam: Present: normal affect, normal mood Skin exam: Present: warm, dry, intact, normal color. Absent: rash Course Vital Signs 07/07/22 07/07/22 15:46 18:00 Temperature 98.0 F Pulse Rate 116 H 97 Respiratory 18 18 Rate Blood Pressure 142/98 140/90 O2 Sat by Pulse 100 99 Oximetry Medical Decision Making - Medical Decision Making Was pt. sent in by a medical professional or institution (, WARD, MACHINE PACK ASSEMBLER, urgent care, hospital, or halfway...) When possible be specific @ -No Did you speak to anyone other than the patient for history (EMS, parent, family, police, friend...)? What history was obtained from this source @ - Did you review nursing and triage notes (agree or disagree)? Why? @ -I reviewed and agree with nursing and triage notes Were old charts reviewed (outside hosp., previous admission, EMS record, old EKG, old radiological studies, urgent care reports/EKG's, halfway records)? Report findings @ -No old charts were reviewed Differential Diagnosis (chest pain, altered mental status, abdominal pain women, abdominal pain men, vaginal bleeding, weakness, fever, dyspnea, syncope, headache, dizziness, GI bleed, back pain, seizure, CVA, palpatations, mental health)? @ -Differential includes fracture, hemorrhage, muscle strain EKG interpreted by me (3pts min.). @ -As above X-rays interpreted by me (1pt min.). @ -X-rays of the hip and pelvis, shoulder, and elbow show no acute process CT interpreted by me (1pt min.). @ -CT of the brain and cervical spine shows no acute intracranial process or cervical spine fracture. There is abnormal extensive white matter changes for the patient's age with MRI suggested if not previously performed. There is mild multilevel degenerative disc disease as well as diffuse idiopathic skeletal hyperostosis with bridging anterior longitudinal ligament extending from C4 through C7 U/S interpreted by me (1pt. min.). @ -None done What testing was considered but not performed or refused? (CT, X-rays, U/S, labs)? Why? @ -None What meds were considered but not given or refused? Why? @ -None Did you discuss the management of the patient with other professionals (professionals i.e. , WARD, MACHINE PACK ASSEMBLER, lab, RT, psych nurse, social services specialist, supervisor esters and emulsifiers, teacher, air crew officer, machine adjuster leader case trim)? Give summary @ -No Was smoking cessation discussed for >3mins.? @ -No Was critical care preformed (if so, how long)? @ -No Were there social determinants of health that impacted care today? How? (Homelessness, low income, unemployed, alcoholism, drug addiction, transportation, low edu. Level, literacy, decrease access to med. care, halfway, rehab)? @ -No Was there de-escalation of care discussed even if they declined (Discuss DNR or withdrawal of care, Hospice)? DNR status @ -No What co-morbidities impacted this encounter? (DM, HTN, Smoking, COPD, CAD, Cancer, CVA, ARF, Chemo, Hep., AIDS, mental health diagnosis, sleep apnea, morbid obesity)? @ -None Was patient admitted / discharged? Hospital course, mention meds given and route, prescriptions, significant lab abnormalities, going to OR and other pertinent info. @ -Patient is a 41-year-old male presenting for evaluation post fall. Patient fell down 2 stairs hitting the back of his head is complaining of pain to the right shoulder, elbow, and hip. On physical examination there is tenderness to palpation, no focal neurological deficits. Patient arrived in c-collar. CT of the brain and cervical spine shows no acute intracranial process or fracture of the cervical spine. There is significant white matter changes for the patient's age, MRI is recommended. X-ray showed no acute fracture or dislocation. Educated the patient on these findings, encouraged follow-up regarding white matter changes and potential need for MRI with PCP. Follow-up with PCP. Report back to ER with any new or worsening symptoms. Discussed return parameters and answered all questions. Patient conveyed verbal understanding and agreed to the plan. I discussed this case in detail with my attending Dr. Flores Undiagnosed new problem with uncertain prognosis? @ -No Drug Therapy requiring intensive monitoring for toxicity (Heparin, Nitro, Insulin, Cardizem)? @ -No Were any procedures done? @ -No Diagnosis/symptom? @ -Fall Acute, or Chronic, or Acute on Chronic? @ -Acute Uncomplicated (without systemic symptoms) or Complicated (systemic symptoms)? @ -Uncomplicated Side effects of treatment? @ -No Exacerbation, Progression, or Severe Exacerbation? @ -No Poses a threat to life or bodily function? How? (Chest pain, [place], [place], pneumonia, PE, COPD, DKA, ARF, appy, cholecystitis, CVA, Diverticulitis, Homicidal, Suicidal, threat to staff... and all critical care pts) @ -Unlikely Disposition Clinical Impression: Fall Disposition: HOME SELF-CARE Condition: Good Instructions (If sedation given, give patient instructions): Head Injury (ED) Additional Instructions: Follow-up with PCP. Report back to ER with any new or worsening symptoms. Take Motrin and Tylenol as needed for pain control. Is patient prescribed a controlled substance at d/c from ED?: No Referrals: John Puente MD [Primary Care Provider] - 1-2 days Time of Disposition: 17:23
--- NOTE | 2022-07-07 17:05 | CT ---
EXAMINATION TYPE: CT brain cspine wo con CT DLP: 1345.1 mGycm, Automated exposure control for dose reduction was used. DATE OF EXAM: 07/07/2022 4:55 PM COMPARISON: None. CLINICAL INDICATION:Male, 41 years old with history of fall; pain after fall TECHNIQUE: Brain: Multiple axial CT images of the brain were obtained without IV contrast. Cspine: Axial CT images from the skull base to the inferior aspect of T2 we obtained without intraven ous contrast. Coronal and sagittal reformatted images were also reviewed. FINDINGS: Brain: Extra-axial spaces: No abnormal extra-axial fluid collections. Ventricular system: Within normal limits Cerebral parenchyma: No acute intraparenchymal hemorrhage or mass effect. The aguayo-white junction is well differentiated. Scattered hypoattenuating areas are seen within the white matter. Cerebellum: Unremarkable. Mass effect: No evidence of midline shift. Intracranial vasculature: unremarkable Soft tissues: Normal. Calvarium/osseous structures: No depressed skull fracture. Paranasal sinuses and mastoid air cells: Mild scattered mucosal thickening and or secretions. Visualized orbits: Orbital contents are intact. Cervical spine: Fracture: None. Osseous structures: Calcification of the anterior longitudinal ligament extending from C4 through C7 Vertebral alignment: Within normal limits. Spinal canal/Neural Foramina: No evidence of significant spinal canal narrowing. No evidence for sign ificant neural foraminal stenosis. Neck soft tissues: Prevertebral soft tissues are within normal limits. Other: The airway is patent. The lung apices are clear. IMPRESSION: 1. No acute intracranial process. 2. Abnormal extensive white matter changes for the patient's age. Consider complete evaluation with MRI brain if not recently performed. 3. No evidence of cervical spine fracture. 4. Mild multilevel degenerative disc disease. 5. Diffuse idiopathic skeletal hyperostosis with bridging anterior longitudinal ligament extending f rom C4 through C7.
--- NOTE | 2022-07-07 17:05 | XR ---
PROCEDURE: XR elbow complete RT - 3V DATE AND TIME: 07/07/2022 4:57 PM CLINICAL INDICATION: Pain; fall TECHNIQUE: Department protocol COMPARISON: None FINDINGS: There is no fracture or malalignment. The soft tissues are unremarkable. IMPRESSION: NO ACUTE PROCESS.
--- NOTE | 2022-07-07 17:09 | XR ---
PROCEDURE: XR shoulder complete RT - 3V DATE AND TIME: 07/07/2022 5:01 PM CLINICAL INDICATION: Pain; fall TECHNIQUE: Department protocol COMPARISON: None FINDINGS: There is no fracture or malalignment. The soft tissues are unremarkable. IMPRESSION: NO ACUTE PROCESS.
--- NOTE | 2022-07-07 17:11 | XR ---
PROCEDURE: XR Hip RT and AP Pelvis - 3V DATE AND TIME: 07/07/2022 5:05 PM CLINICAL INDICATION: Pain; fall TECHNIQUE: Department protocol COMPARISON: None FINDINGS: There is no fracture or malalignment. The soft tissues are unremarkable. IMPRESSION: NO ACUTE PROCESS.
[2022-07-07] MEDS ORDERED: ORPHENADRINE 30 MG/ML 2 ML VIAL IM STA (17:22)
[2022-07-07] MEDS ORDERED: KETOROLAC 15 MG/ML 1 ML VIAL IM STA (17:22)
[2022-07-07 18:01] VITALS: BP 140/90; PULSE 97
== END 2022-07-07 18:02 | disposition home or self-care (01) ==
LOC: EC 15:46
DX: S09.90XA Unspecified injury of head, initial encounter (principal); F41.9 Anxiety disorder, unspecified; F31.9 Bipolar disorder, unspecified; F17.200 Nicotine dependence, unspecified, uncomplicated; F12.90 Cannabis use, unspecified, uncomplicated; Z88.0 Allergy status to penicillin; W01.0XXA Fall on same level from slipping, tripping and stumbling without subsequent striking against object, initial encounter; Y92.009 Unspecified place in unspecified non-institutional (private) residence as the place of occurrence of the external cause
CPT/HCPCS: 73502; 73030; 73080; 72125; 70450; 99284; 96372 ×2; J2360; J1885

== ENCOUNTER 2023-11-13 21:43 | Inpatient (IN) | payer OTHER ==
[2023-11-13 22:16] VITALS: TEMP 98.8
[2023-11-13] MEDS ORDERED: LORazepam 2 MG/ML INJ IV PRN ×3 (22:38)
[2023-11-13] MEDS: ONDANSETRON 4 MG/2 ML VIAL IVP STA (23:05)
[2023-11-13] MEDS: LORazepam 2 MG/ML INJ IV STA (23:06)
[2023-11-13] MEDS: SODIUM CHLORIDE 0.9% 1,000 ML IV STA (23:08)
--- NOTE | 2023-11-13 23:18 | ED ---
General Adult HPI - General Chief complaint: Alcohol Stated complaint: Alcohol Withdrawl,Heart Palps Time Seen by Provider: 11/13/23 22:30 Source: patient, RN notes reviewed, old records reviewed Mode of arrival: ambulatory Limitations: no limitations - History of Present Illness Initial comments: Patient is a 43-year-old male who presents emergency department over concern for alcohol withdrawals. Has been feeling slightly more agitated and anxious. Little bit of nausea but no emesis. Usually drinks approximately 1 pint per day. Only had 3 shots today. Has a history of alcohol withdrawals in the past. Presents for further evaluation at this time. - Related Data Home Medications Medication Instructions Recorded Confirmed HYDROcodone/APAP 7.5-325MG [[place] 1 tab PO Q6HR PRN 10/10/17 05/24/22 7.5-325] predniSONE 10 mg PO DAILY 10/10/17 05/24/22 Dextroamphetamine/Amphetamine 10 mg PO BID 11/23/20 05/24/22 [Adderall] LORazepam [Ativan] 1 mg PO Q6H PRN 11/23/20 05/24/22 Cyclobenzaprine [Flexeril] 10 mg PO TID PRN 11/24/20 05/24/22 Ibuprofen [Motrin Ib] 800 mg PO TID PRN 05/24/22 05/24/22 Metoprolol Succinate (ER) [Toprol 25 mg PO DAILY 05/24/22 05/24/22 XL] Previous Rx's Medication Instructions Recorded Benzonatate [Tessalon Perles] 100 mg PO TID PRN 4 Days #12 05/26/22 capsule Ondansetron Odt [Zofran Odt] 4 mg PO Q8HR PRN 3 Days #12 tab 05/26/22 Oseltamivir [Tamiflu] 75 mg PO Q12HR 4 Days #8 cap 05/26/22 Pantoprazole [Protonix] 40 mg PO DAILY #30 tab 05/26/22 Thiamine [Vitamin B-1] 100 mg PO DAILY #30 tab 05/26/22 chlordiazePOXIDE HCl [Librium] 25 mg PO DIRECTED 6 Days #12 05/26/22 capsule Allergies Allergy/AdvReac Type Severity Reaction Status Date / Time Penicillins Allergy Unknown Verified 11/13/23 22:16 Review of Systems ROS Statement: Those systems with pertinent positive or pertinent negative responses have been documented in the HPI. Review of Systems: CONST: Denies fever EYES: Denies blurry vision ENT: Denies nasal congestion C/V: Denies Chest pain RESP: Denies shortness of breath GI: Endorses nausea : Denies dysuria SKIN: Denies rash. MSK: Denies joint pain. NEURO: Denies headache ROS Other: All systems not noted in ROS Statement are negative. Past Medical History Past Medical History: Rheumatoid Arthritis (RA) Additional Past Medical History / Comment(s): ankylitic spondolysis , psoriatic arthritis, dish (disinsemminated idiopathic skeletal hypertosis), hematuria,alcohol withdrawal History of Any Multi-Drug Resistant Organisms: None Reported Past Surgical History: Appendectomy Additional Past Surgical History / Comment(s): back, cage in spine Past Anesthesia/Blood Transfusion Reactions: Previous Problems w/ Anesthesia Additional Past Anesthesia/Blood Transfusion Reaction / Comment(s): reaction to anesthesia when having injections to sternum Past Psychological History: Anxiety, Bipolar, Depression Smoking Status: Current every day smoker Past Alcohol Use History: Abuse, Daily Past Drug Use History: Marijuana - Past Family History Mother Family Medical History: Coronary Artery Disease (CAD), Diabetes Mellitus, Hypertension Additional Family Medical History / Comment(s): CABG Father History Unknown: Yes Family Medical History: Cancer Additional Family Medical History / Comment(s): Prostate CA, alcoholic General Exam - General Exam Comments Initial Comments: General: Appears in mild alcohol withdrawals. CIWA is 4 at this time. No significant tremors. HEAD: Normal with no signs of head trauma. EYES: PERRLA, EOMI, conjunctiva normal, no discharge. ENT: Hearing grossly intact, normal oropharynx. RESPIRATORY: Clear breath sounds bilaterally. No wheezes, rales, or rhonchi. C/V: Regular rate and rhythm. S1 and S2 auscultated, no edema, peripheral pulses 2+ and intact throughout ABD: Abd is soft, nontender, nondistended EXT: Normal range of motion, no obvious deformity SKIN: No rashes or lesions observed on exposed skin. NEURO: Alert and oriented x 4. Limitations: no limitations Course Vital Signs 11/13/23 11/14/23 22:10 00:15 Temperature 98.8 F Pulse Rate 107 H 93 Respiratory 16 18 Rate Blood Pressure 142/92 130/98 O2 Sat by Pulse 98 100 Oximetry Medical Decision Making - Medical Decision Making Was pt. sent in by a medical professional or institution (, WARD, SPECIAL EFFECTS DESIGNER, urgent care, hospital, or alf...) When possible be specific @ -No Did you speak to anyone other than the patient for history (EMS, parent, family, police, friend...)? What history was obtained from this source @ -No Did you review nursing and triage notes (agree or disagree)? Why? @ -I reviewed and agree with nursing and triage notes Were old charts reviewed (outside hosp., previous admission, EMS record, old EKG, old radiological studies, urgent care reports/EKG's, alf records)? Report findings @ -No old charts were reviewed Differential Diagnosis (chest pain, altered mental status, abdominal pain women, abdominal pain men, vaginal bleeding, weakness, fever, dyspnea, syncope, headache, dizziness, GI bleed, back pain, seizure, CVA, palpatations, mental health, musculoskeletal)? @ -Alcohol withdrawals, electrolyte abnormalities, TONY. This list is not all inclusive. EKG interpreted by me (3pts min.). @ -As above X-rays interpreted by me (1pt min.). @ -None done CT interpreted by me (1pt min.). @ -None done U/S interpreted by me (1pt. min.). @ -None done What testing was considered but not performed or refused? (CT, X-rays, U/S, labs)? Why? @ -None What meds were considered but not given or refused? Why? @ -None Did you discuss the management of the patient with other professionals (pro fessionals i.e. , WARD, SPECIAL EFFECTS DESIGNER, lab, RT, psych nurse, pediatric social worker, mortgage closer, teacher, safety officer, corrections caseworker)? Give summary @ -Dr. Connors was notified of the admission. Was smoking cessation discussed for >3mins.? @ -No Was critical care preformed (if so, how long)? @ -No Were there social determinants of health that impacted care today? How? (Homelessness, low income, unemployed, alcoholism, drug addiction, transportation, low edu. Level, literacy, decrease access to med. care, shelter, rehab)? @ -No Was there de-escalation of care discussed even if they declined (Discuss DNR or withdrawal of care, Hospice)? DNR status @ -No What co-morbidities impacted this encounter? (DM, HTN, Smoking, COPD, CAD, Cancer, CVA, ARF, Chemo, Hep., AIDS, mental health diagnosis, sleep apnea, morbid obesity)? @ -None Was patient admitted / discharged? Hospital course, mention meds given and route, prescriptions, significant lab abnormalities, going to OR and other pertinent info. @ -Patient presents with mild alcohol withdrawals. We will obtain basic labs, as well as EGD. CIWA is approximately 4 at this time. He will be given a dose of IV Ativan as well as started on IV fluids given a dose of Zofran. Patient in agreement this plan. Vital signs remarkable for mild tachycardia. Presents for further evaluation at this time. Patient's laboratory studies returned within acceptable limits. On reevaluation, patient is still having some mild withdrawals. Symptoms seem to range anywhere from 4-8 on the CIWA scale. Discussed at length with the patient and he states he believes he has a history of delirium tremens and feels unsafe going home as he does not plan on drinking anymore and is concerned that he may have worsening alcohol withdrawal symptoms. I did offer observation admission which she did accept. Dr. Connors was notified of the admission. Undiagnosed new problem with uncertain prognosis? @ -No Drug Therapy requiring intensive monitoring for toxicity (Heparin, Nitro, Insulin, Cardizem)? @ -No Were any procedures done? @ -No Diagnosis/symptom? @ -Alcohol withdrawal Acute, or Chronic, or Acute on Chronic? @ -Acute Uncomplicated (without systemic symptoms) or Complicated (systemic symptoms)? @ -Complicated Side effects of treatment? @ -None Exacerbation, Progression, or Severe Exacerbation] @ -No Poses a threat to life or bodily function? @ -Yes - Lab Data Result diagrams: 11/13/23 22:56 11/13/23 22:56 Lab Results 11/13/23 11/13/23 11/13/23 Range/Units 22:56 22:56 22:56 WBC 11.3 H (3.8-10.6) k/uL RBC 4.44 (4.30-5.90) m/uL Hgb 13.7 (13.0-17.5) gm/dL Hct 42.6 (39.0-53.0) % MCV 96.1 (80.0-100.0) fL MCH 30.8 (25.0-35.0) pg MCHC 32.1 (31.0-37.0) g/dL RDW 13.6 (11.5-15.5) % Plt Count 290 (150-450) k/uL MPV 8.0 Neutrophils % 64 % Lymphocytes % 26 % Monocytes % 6 % Eosinophils % 2 % Basophils % 1 % Neutrophils # 7.2 (1.3-7.7) k/uL Lymphocytes # 2.9 (1.0-4.8) k/uL Monocytes # 0.7 (0-1.0) k/uL Eosinophils # 0.2 (0-0.7) k/uL Basophils # 0.1 (0-0.2) k/uL PT 9.9 L (10.0-12.5) sec INR 0.9 (<1.2) APTT 26.5 (22.0-30.0) sec Sodium 140 (137-145) mmol/L Potassium 3.6 (3.5-5.1) mmol/L Chloride 107 (98-107) mmol/L Carbon Dioxide 22 (22-30) mmol/L Anion Gap 11 mmol/L BUN 22 H (9-20) mg/dL Creatinine 0.86 (0.66-1.25) mg/dL Est GFR (CKD-EPI)AfAm >90 (>60 ml/min/1.73 sqM) Est GFR (CKD-EPI)NonAf >90 (>60 ml/min/1.73 sqM) Glucose 85 (74-99) mg/dL Calcium 9.2 (8.4-10.2) mg/dL Total Bilirubin 0.5 (0.2-1.3) mg/dL AST 54 (17-59) U/L ALT 48 (4-49) U/L Alkaline Phosphatase 94 (38-126) U/L Total Protein 7.4 (6.3-8.2) g/dL Albumin 4.7 (3.5-5.0) g/dL Lipase 134 (23-300) U/L Urine Color Urine Appearance (Clear) Urine pH (5.0-8.0) Ur Specific [place] (1.001-1.035) Urine Protein (Negative) Urine Glucose (UA) (Negative) Urine Ketones (Negative) Urine Blood (Negative) Urine Nitrite (Negative) Urine Bilirubin (Negative) Urine Urobilinogen (<2.0) mg/dL Ur Leukocyte Esterase (Negative) Urine RBC (0-5) /hpf Urine WBC (0-5) /hpf Ur Squamous Epith Cells (0-4) /hpf Hyaline Casts (0-2) /lpf Urine Mucus (None) /hpf Urine Yeast (Budding) (None) /hpf Serum Alcohol 26 mg/dL 11/13/23 Range/Units 23:55 WBC (3.8-10.6) k/uL RBC (4.30-5.90) m/uL Hgb (13.0-17.5) gm/dL Hct (39.0-53.0) % MCV (80.0-100.0) fL MCH (25.0-35.0) pg MCHC (31.0-37.0) g/dL RDW (11.5-15.5) % Plt Count (150-450) k/uL MPV Neutrophils % % Lymphocytes % % Monocytes % % Eosinophils % % Basophils % % Neutrophils # (1.3-7.7) k/uL Lymphocytes # (1.0-4.8) k/uL Monocytes # (0-1.0) k/uL Eosinophils # (0-0.7) k/uL Basophils # (0-0.2) k/uL PT (10.0-12.5) sec INR (<1.2) APTT (22.0-30.0) sec Sodium (137-145) mmol/L Potassium (3.5-5.1) mmol/L Chloride (98-107) mmol/L Carbon Dioxide (22-30) mmol/L Anion Gap mmol/L BUN (9-20) mg/dL Creatinine (0.66-1.25) mg/dL Est GFR (CKD-EPI)AfAm (>60 ml/min/1.73 sqM) Est GFR (CKD-EPI)NonAf (>60 ml/min/1.73 sqM) Glucose (74-99) mg/dL Calcium (8.4-10.2) mg/dL Total Bilirubin (0.2-1.3) mg/dL AST (17-59) U/L ALT (4-49) U/L Alkaline Phosphatase (38-126) U/L Total Protein (6.3-8.2) g/dL Albumin (3.5-5.0) g/dL Lipase (23-300) U/L Urine Color Yellow Urine Appearance Clear (Clear) Urine pH 5.5 (5.0-8.0) Ur Specific [place] 1.031 (1.001-1.035) Urine Protein Trace H (Negative) Urine Glucose (UA) Negative (Negative) Urine Ketones Negative (Negative) Urine Blood Moderate H (Negative) Urine Nitrite Negative (Negative) Urine Bilirubin Negative (Negative) Urine Urobilinogen 2.0 (<2.0) mg/dL Ur Leukocyte Esterase Negative (Negative) Urine RBC 1 (0-5) /hpf Urine WBC <1 (0-5) /hpf Ur Squamous Epith Cells 1 (0-4) /hpf Hyaline Casts 1 (0-2) /lpf Urine Mucus Many H (None) /hpf Urine Yeast (Budding) Rare H (None) /hpf Serum Alcohol mg/dL - EKG Data -: EKG Interpreted by Me EKG Comments: 12-lead Electrocardiogram Interpretation Note EKG was reviewed and interpreted by myself. 12-lead ECG performed at 2255 is interpreted by me as revealing normal sinus rhythm at a rate of 93 beats per minute. [place] is normal. VA interval is 145 ms, QRS durations 114 ms, QTc is 405 ms.. There were no ST or T wave abnormalities to suggest myocardial ischemia or injury. R wave progression across the precordium was satisfactory. By my interpretation this EKG is non-diagnostic for acute ischemia. Disposition Clinical Impression: Alcohol withdrawal Disposition: ADMITTED IP TO THIS HOSP Condition: Stable Referrals: John Puente MD [Primary Care Provider] - 1-2 days Time of Disposition: 00:28
[2023-11-13 23:55] LABS: Basophils # (A) 0.1 k/uL (0-0.2); Basophils % (A) 1 %; Eosinophils # (A) 0.2 k/uL (0-0.7); Eosinophils % (A) 2 %; HCT 42.6 % (39.0-53.0); HGB 13.7 gm/dL (13.0-17.5); Lymphocytes # (A) 2.9 k/uL (1.0-4.8); Lymphocytes % (A) 26 %; MCH 30.8 pg (25.0-35.0); MCHC 32.1 g/dL (31.0-37.0); MCV 96.1 fL (80.0-100.0); Monocytes # (A) 0.7 k/uL (0-1.0); Monocytes % (A) 6 %; Neutrophils # (A) 7.2 k/uL (1.3-7.7); Neutrophils % (A) 64 %; Platelet Count 290 k/uL (150-450); RBC 4.44 m/uL (4.30-5.90); RDW 13.6 % (11.5-15.5); WBC 11.3 k/uL (3.8-10.6)
[2023-11-14 00:08] LABS: ALT 48 U/L (4-49); AST 54 U/L (17-59); African American GFR (CKD) >90 (>60 ml/min/1.73 sqM); Albumin 4.7 g/dL (3.5-5.0); Alcohol 26 mg/dL; Alkaline Phosphatase 94 U/L (38-126); Anion Gap 11 mmol/L; Blood Urea Nitrogen 22 mg/dL (9-20); Calcium 9.2 mg/dL (8.4-10.2); Carbon Dioxide 22 mmol/L (22-30); Chloride 107 mmol/L (98-107); Glucose 85 mg/dL (74-99); Lipase 134 U/L (23-300); Non-African American GFR(CKD) >90 (>60 ml/min/1.73 sqM); Potassium 3.6 mmol/L (3.5-5.1); Sodium 140 mmol/L (137-145); Total Bilirubin 0.5 mg/dL (0.2-1.3); Total Protein 7.4 g/dL (6.3-8.2)
[2023-11-14 00:11] LABS: INR 0.9 (<1.2); Partial Thromboplastin Time 26.5 sec (22.0-30.0); Prothrombin Time 9.9 sec (10.0-12.5)
[2023-11-14 00:17] LABS: Appearance,Urine Clear (Clear); Bilirubin,Urine Negative (Negative); Blood,Urine Moderate (Negative); Budding Yeast,Urine Rare /hpf; Color,Urine Yellow; Glucose,Urine (UA) Negative (Negative); Hyaline Casts,Urine 1 /lpf (0-2); Ketones,Urine Negative (Negative); Leukocyte Esterase,Urine Negative (Negative); Mucus,Urine Many /hpf; Nitrite,Urine Negative (Negative); PH, Urine 5.5 (5.0-8.0); Protein,Urine Trace (Negative); RBC,Urine 1 /hpf (0-5); Specific Gravity,Urine 1.031 (1.001-1.035); Squamous Epithelial Cell,Urine 1 /hpf (0-4); WBC,Urine <1 /hpf (0-5)
[2023-11-14] MEDS ORDERED: ONDANSETRON 4 MG/2 ML VIAL IVP PRN (00:25)
[2023-11-14] MEDS ORDERED: IBUPROFEN 400 MG TAB PO PRN (00:25)
[2023-11-14] MEDS ORDERED: NALOXONE 0.4 MG/ML 1 ML VIAL IV PRN (00:25)
[2023-11-14] MEDS: SODIUM CHLORIDE 0.9% 1,000 ML IV SCH (02:11)
[2023-11-14] MEDS: PANTOPRAZOLE 40 MG/10 ML VIAL IV SCH (09:11)
[2023-11-14] MEDS: HEPARIN SODIUM,PORCINE 5,000 UNIT/ML 1 ML VIAL SQ SCH (09:19)
[2023-11-14] MEDS ORDERED: ALBUTEROL NEBULIZED 2.5 MG/3 ML INHALATION PRN (10:13)
[2023-11-14] MEDS: predniSONE 10 MG TAB PO SCH (10:43)
[2023-11-14] MEDS: NON FORMULARY DRUG (Dextroamphetamine/Amphetamine [Adderall] 10 MG Tablet) PO SCH (10:44)
[2023-11-14] MEDS: NICOTINE 21MG/24HR PATCH TRANSDERM SCH (12:47)
[2023-11-14] MEDS: CYCLOBENZAPRINE 10 MG TAB PO PRN (12:48)
[2023-11-14] MEDS: CALCIUM CARBONATE 500 MG CHEWABLE PO SCH (12:48)
[2023-11-14] MEDS: METOPROLOL TARTRATE 12.5 MG TAB PO SCH (12:48)
[2023-11-14] MEDS: HYDROcodone/APAP 7.5-325MG 1 EACH TAB PO PRN (12:48)
[2023-11-14] MEDS: THIAMINE 100 MG TAB PO SCH (12:51)
[2023-11-14] MEDS: diazePAM 2 MG TAB PO SCH (13:38)
[2023-11-14 14:45] VITALS: BP 132/85; RESP 17
[2023-11-14] MEDS: IPRATROPIUM-ALBUTEROL 3 ML NEB INHALATION SCH (15:07)
[2023-11-14 15:17] VITALS: PULSE 78
--- NOTE | 2023-11-14 18:21 | P.HPIM ---
History of Present Illness H&P Date: 11/14/23 Chief Complaint: Alcohol withdrawal This is a 43-year-old patient who follows with Dr. John Puente. drinking excessive alcohol for quite some time. Also smokes cigarettes Normally has about 1 pint a day. Had recently stopped drinking. Then he lost his father then his grandmother then went back drinking. He does want to stop. When he presented he was having tremors palpitations very anxious. Which were alcohol withdrawals. This morning accompanied by his . Feeling jittery. Shakes. Anxious. Review of systems: GEN.: Tired EYES: None HEENT: None NECK: None RESPIRATORY: None CARDIOVASCULAR: Palpitations GASTROINTESTINAL: Heartburn GENITOURINARY: None MUSCULOSKELETAL: None LYMPHATICS: None HEMATOLOGICAL: None PSYCHIATRY: Anxious NEUROLOGICAL: Tremors Past medical history to include: Alcoholism. Smokes cigarettes. Rheumatoid arthritis Social history: , lives with his . Smokes a pack a day for several years.. Has been drinking significantly about 20 years. Also does marijuana. Physical examination: VITAL SIGNS: 98.8, 107, 16, 142/92, 98% room air upon presentation GENERAL: Lying on anxious EYES: Pupils equal. Conjunctiva normal, strabismus. NECK: JVD not raised; masses not palpable. HEART: First and second heart sounds are normal; no edema. LUNGS: Respiratory rate normal; slightly decreased breath sound. ABDOMEN: Soft, nontender, liver spleen not palpable, no masses palpable. PSYCH: Alert and oriented x3; mood and affect anxious NEUROLOGICAL: Cranial nerves grossly intact; no facial asymmetry, power and sensation grossly intact. Tremors LYMPHATICS: No lymph nodes palpable in the axilla and neck INVESTIGATIONS, reviewed in the clinical context: November 12: White 0.3 hemoglobin 13.7 platelets 290 sodium 140 potassium 3.6 BUN 22 creatinine 0.86 Serum alcohol 26 EKG tracing normal sinus rhythm Assessment and plan: -Alcohol withdrawal seen in room. Last drink was yesterday Start Valium 2 mg every 8. Lopressor 12.5 twice daily if to cut back sympathetic drive. CIWA scale -Chronic alcohol use disorder Will discuss further options with medications when patient is doing better Thiamine. -Chronic nicotine dependence, cigarette use. Nicotine patch -Recreational marijuana use Advised against the use of same -GERD, chronic gastritis likely from alcoholism Protonix -Chronic rheumatoid arthritis Patient is on a maintenance dose of prednisone. Continue. follow-up with the meat counter worker upon discharge. -Full code Care was discussed with patient and at the bedside.Given patient's symptoms, given the complexity and severity of patient's condition expect the patient to be in the hospital at least for 2 overnights Past Medical History Past Medical History: Rheumatoid Arthritis (RA) Additional Past Medical History / Comment(s): ankylitic spondolysis , psoriatic arthritis, dish (disinsemminated idiopathic skeletal hypertosis), hematuria,alcohol withdrawal History of Any Multi-Drug Resistant Organisms: None Reported Past Surgical History: Appendectomy Additional Past Surgical History / Comment(s): back, cage in spine Past Anesthesia/Blood Transfusion Reactions: Previous Problems w/ Anesthesia Additional Past Anesthesia/Blood Transfusion Reaction / Comment(s): reaction to anesthesia when having injections to sternum Past Psychological History: Anxiety, Bipolar, Depression Smoking Status: Current every day smoker Past Alcohol Use History: Abuse, Daily Past Drug Use History: Marijuana - Past Family History Mother Family Medical History: Coronary Artery Disease (CAD), Diabetes Mellitus, Hypertension Additional Family Medical History / Comment(s): CABG Father History Unknown: Yes Family Medical History: Cancer Additional Family Medical History / Comment(s): Prostate CA, alcoholic Medications and Allergies Home Medications Medication Instructions Recorded Confirmed Type HYDROcodone/APAP 7.5-325MG [[place] 1 tab PO Q6HR PRN 10/10/17 11/14/23 History 7.5-325] predniSONE 10 mg PO DAILY 10/10/17 11/14/23 History Dextroamphetamine/Amphetamine 10 mg PO BID 11/23/20 11/14/23 History [Adderall] LORazepam [Ativan] 1 mg PO Q6H PRN 11/23/20 11/14/23 History Cyclobenzaprine [Flexeril] 10 mg PO TID PRN 11/24/20 11/14/23 History Ibuprofen [Motrin Ib] 800 mg PO TID PRN 05/24/22 11/14/23 History Albuterol Inhaler [Ventolin Hfa 2 puff INHALATION RT-Q6H PRN 11/14/23 11/14/23 History Inhaler] Allergies Allergy/AdvReac Type Severity Reaction Status Date / Time Penicillins Allergy Unknown Verified 11/14/23 07:28 Physical Exam Vitals: Vital Signs Temp Pulse Resp BP Pulse Ox 11/14/23 09:05 88 18 99 11/14/23 03:42 81 20 113/83 98 11/14/23 00:15 93 18 130/98 100 11/13/23 22:10 98.8 F 107 H 16 142/92 98 Intake and Output 11/13/23 11/14/23 11/14/23 22:59 06:59 14:59 Other: Weight 71.668 kg Results CBC & Chem 7: 11/13/23 22:56 11/13/23 22:56 Labs: Abnormal Lab Results - Last 24 Hours (Table) 11/13/23 11/13/23 11/13/23 Range/Units 22:56 22:56 22:56 WBC 11.3 H (3.8-10.6) k/uL PT 9.9 L (10.0-12.5) sec BUN 22 H (9-20) mg/dL Urine Protein (Negative) Urine Blood (Negative) Urine Mucus (None) /hpf Urine Yeast (Budding) (None) /hpf 11/13/23 Range/Units 23:55 WBC (3.8-10.6) k/uL PT (10.0-12.5) sec BUN (9-20) mg/dL Urine Protein Trace H (Negative) Urine Blood Moderate H (Negative) Urine Mucus Many H (None) /hpf Urine Yeast (Budding) Rare H (None) /hpf
[2023-11-15] MEDS ORDERED: PANTOPRAZOLE 40 MG TABLET PO SCH (07:30)
== END 2023-11-14 18:43 | disposition left against medical advice (07) | DRG 770 ==
LOC: EC 21:43 → 6NMEDSUR 11-14 00:27 → OBSVTOIN 11-14 12:24 → 6NMEDSUR 11-14 13:17 → UNDODISOB 11-14 18:43
PROVIDERS: ADMIT Hospitalist; ATTEND Hospitalist
DX: F10.239 Alcohol dependence with withdrawal, unspecified (principal); L40.50 Arthropathic psoriasis, unspecified; M06.9 Rheumatoid arthritis, unspecified; M45.0 Ankylosing spondylitis of multiple sites in spine; F31.9 Bipolar disorder, unspecified; K29.20 Alcoholic gastritis without bleeding; Z28.310 Unvaccinated for COVID-19; M48.10 Ankylosing hyperostosis [Forestier], site unspecified; K21.9 Gastro-esophageal reflux disease without esophagitis; F17.210 Nicotine dependence, cigarettes, uncomplicated; Z79.51 Long term (current) use of inhaled steroids; Z79.899 Other long term (current) drug therapy; F41.9 Anxiety disorder, unspecified; Z88.0 Allergy status to penicillin
CPT/HCPCS: 36415; 80053; 80320; 81001; 83690; 85025; 85610; 85730; 93005; 94640; 96361; 96372; 96374; 96375; 99285